=== PATIENT | female | born 1975 | race Caucasian/White ===

== ENCOUNTER 2017-02-18 22:48 | Inpatient (IN) | payer MEDICAID ==
[~2017-02-18] VITALS: Ht 167.6 cm; Wt 61.0 kg
[~2017-02-18 22:48] MED LIST: CARB200T6 PO; PARO10TA89 PO; TRAZ-147 PO
[2017-02-18 23:07] LABS: BASOPHILS % (AUTO) 2.1 % (0.0-2.0); EOSINOPHILS % (AUTO) 0.8 % (1.0-6.0); HEMATOCRIT 36.4 % (36-46); HEMOGLOBIN 11.7 g/dL (12.0-16.0); LYMPHOCYTES # (AUTO) 2.7 K/uL (1.0-4.8); LYMPHOCYTES % (AUTO) 42.7 % (22.0-44.0); MEAN CORPUSCULAR HEMOGLOBIN 31.5 pg (26.0-34.0); MEAN CORPUSCULAR HGB CONC 32.1 G/dL (31.0-37.0); MEAN CORPUSCULAR VOLUME 98 fL (80-100); MONOCYTES # (AUTO) 0.7 K/uL (0.1-1.0); MONOCYTES % (AUTO) 11.1 % (2.0-9.0); NEUTROPHILS # (AUTO) 2.8 K/uL (1.8-7.7); NEUTROPHILS % (AUTO) 43.3 % (40.0-70.0); PLATELET COUNT (AUTO) 407 K/uL (150-450); RED BLOOD CELL COUNT(AUTO) 3.71 MIL/uL (4.00-5.20); RED CELL DISTRIBUTION WIDTH 14.9 % (11.5-14.5); WHITE BLOOD COUNT (AUTO) 6.4 K/uL (4.5-11.0)
[2017-02-18 23:13] LABS: ANION GAP 12 mmol/L (8-16); CALCIUM, TOTAL 8.5 mg/dL (8.8-10.5); CARBON DIOXIDE 25 mmol/L (22-29); CHLORIDE 106 mmol/L (98-107); CREATININE 0.79 mg/dL (0.60-1.30); GLOMERULAR FILTR. RATE CALC > 60 mL/min (>60); POTASSIUM 3.6 mmol/L (3.5-5.1); SODIUM SERUM 143 mmol/L (136-145); UREA NITROGEN, BLOOD 11 mg/dL (7-18)
[2017-02-18 23:19] LABS: ALANINE AMINOTRANSFERASE 142 U/L (12-78); ALBUMIN 3.6 g/dL (3.4-5.0); ASPARTATE AMINOTRANSFERASE 109 U/L (15-37); BILIRUBIN,TOTAL 0.4 mg/dL (0.1-1.0); TOTAL PROTEIN, SERUM 7.6 g/dL (6.4-8.2)
[2017-02-19] MEDS ORDERED: LORazepam 2 MG/ML VIAL IM ONE (01:00)
[2017-02-19] MEDS ORDERED: DiphenhydrAMINE HCL 50 MG/ML VIAL IM ONE (01:00)
[2017-02-19] MEDS ORDERED: HALOPERIDOL LACTATE 5 MG/ML VIAL IM ONE (01:00)
[2017-02-19] MEDS ORDERED: HALOPERIDOL 5 MG TABLET PO PRN (01:45)
[2017-02-19] MEDS ORDERED: ZOLPIDEM TARTRATE 10 MG TABLET PO PRN (01:45)
[2017-02-19] MEDS ORDERED: LORazepam 2 MG TABLET PO PRN (01:45)
[2017-02-19 01:46] VITALS: BP 122/76
[2017-02-19 04:20] VITALS: BP 122/60
[2017-02-19 04:38] LABS: GLUCOSE, URINE (UA) NEGATIVE (NEGATIVE); KETONES,URINE NEGATIVE (NEGATIVE); LEUKOCYTE ESTERASE ,URINE TRACE (NEGATIVE); OCCULT BLOOD,URINE NEGATIVE (NEGATIVE); PROTEIN,URINE NEGATIVE (NEGATIVE)
[2017-02-19 04:39] LABS: ADD UA MICROSCOPIC YES
[2017-02-19 04:40] LABS: APPEARANCE,URINE HAZY (CLEAR)
[2017-02-19 05:27] LABS: HYALINE CASTS, URINE 0-2 /LPF (None Seen); RBC,URINE 0-2 /HPF (0-2); SQUAMOUS EPITHELIAL CELL,UR Rare /LPF (None Seen)
[2017-02-19 09:17] VITALS: BP 107/61
[2017-02-19] MEDS: CarBAMazepine 200 MG TABLET PO SCH ×2 (13:16→16:16)
[2017-02-19 18:03] VITALS: BP 114/72
[2017-02-19] MEDS ORDERED: MAGNESIUM HYDROXIDE SUSPENSION 30 ML UDCUP PO PRN (19:15)
[2017-02-19] MEDS ORDERED: ALBUTEROL SULFATE HFA 90 MCG/PUFF 8 GM INHALER IH PRN (19:15)
[2017-02-19] MEDS ORDERED: ACETAMINOPHEN 325 MG TABLET PO PRN (19:15)
[2017-02-19] MEDS ORDERED: CloNIDine HCL 0.1 MG TABLET PO PRN (19:15)
[2017-02-19] MEDS ORDERED: LOPERAMIDE HCL 2 MG CAPSULE PO PRN (19:15)
[2017-02-19] MEDS ORDERED: BACITRACIN 28.4 GM OINTMENT TP PRN (19:15)
[2017-02-19] MEDS ORDERED: MAG HYDROX/AL HYDROX/SIMETH ES 30 ML SUSPENSION UDCUP PO PRN (19:15)
[2017-02-19] MEDS ORDERED: IBUPROFEN 600 MG TABLET PO PRN (19:15)
[2017-02-19] MEDS ORDERED: PETROLATUM,WHITE 71 GM JELLY TP PRN (19:15)
[2017-02-19] MEDS ORDERED: ONDANSETRON HCL 4 MG TABLET PO PRN (19:15)
[2017-02-19] MEDS ORDERED: BENZOCAINE/MENTHOL LOZENGE [8 LOZENGES/PACKET] MM PRN (19:30)
[2017-02-19] MEDS ORDERED: TraZODone HCL 100 MG TABLET PO SCH (21:00)
[2017-02-19] MEDS ORDERED: PARoxetine HCL 10 MG TABLET PO SCH (21:00)
[2017-02-19] MEDS: TraZODone HCL 100 MG TABLET PO SCH (21:57)
[2017-02-19] MEDS: PARoxetine HCL 10 MG TABLET PO SCH (21:58)
[2017-02-19] MEDS: QUEtiapine FUMARATE 100 MG TABLET PO SCH (21:58)
[2017-02-20] VITALS (9 sets, daily range): BP systolic 96–132; BP diastolic 57–77
[2017-02-20] MEDS: PARoxetine HCL 20 MG TABLET PO SCH (10:29)
[2017-02-20] MEDS: CarBAMazepine 200 MG TABLET PO SCH ×2 (10:29→17:16)
[2017-02-20] MEDS: ChlordiazePOXIDE HCL 25 MG CAPSULE PO PRN ×2 (16:26→20:47)
[2017-02-20] MEDS: PARoxetine HCL 10 MG TABLET PO SCH (20:47)
[2017-02-20] MEDS: TraZODone HCL 100 MG TABLET PO SCH (20:47)
[2017-02-20] MEDS: QUEtiapine FUMARATE 100 MG TABLET PO SCH (20:48)
[2017-02-21] VITALS (8 sets, daily range): BP systolic 93–111; BP diastolic 55–72
[2017-02-21] MEDS ORDERED: ChlordiazePOXIDE HCL 25 MG CAPSULE PO PRN (07:00)
[2017-02-21] MEDS: PARoxetine HCL 20 MG TABLET PO SCH (10:03)
[2017-02-21] MEDS: CarBAMazepine 200 MG TABLET PO SCH ×2 (10:04→16:25)
[2017-02-21] MEDS: ChlordiazePOXIDE HCL 25 MG CAPSULE PO SCH ×4 (10:05→20:19)
[2017-02-21] MEDS: QUEtiapine FUMARATE 100 MG TABLET PO SCH (20:19)
[2017-02-21] MEDS: TraZODone HCL 100 MG TABLET PO SCH (20:19)
[2017-02-21] MEDS: PARoxetine HCL 10 MG TABLET PO SCH (20:20)
[2017-02-22 02:30] VITALS: BP 110/63
[2017-02-22 08:05] VITALS: BP 161/93
[2017-02-22] MEDS: PARoxetine HCL 20 MG TABLET PO SCH (09:03)
[2017-02-22] MEDS: CarBAMazepine 200 MG TABLET PO SCH ×2 (09:03→17:06)
[2017-02-22] MEDS: ChlordiazePOXIDE HCL 25 MG CAPSULE PO SCH ×4 (09:03→20:51)
[2017-02-22 16:25] VITALS: BP 95/51
[2017-02-22] MEDS: PARoxetine HCL 10 MG TABLET PO SCH (20:51)
[2017-02-22] MEDS: TraZODone HCL 100 MG TABLET PO SCH (20:51)
[2017-02-22] MEDS: QUEtiapine FUMARATE 100 MG TABLET PO SCH (20:51)
[2017-02-23] MEDS ORDERED: ChlordiazePOXIDE HCL 10 MG CAPSULE PO PRN (07:00)
[2017-02-23 08:45] VITALS: BP 101/54
[2017-02-23] MEDS: CarBAMazepine 200 MG TABLET PO SCH (09:27)
[2017-02-23] MEDS: PARoxetine HCL 20 MG TABLET PO SCH (09:27)
[2017-02-23] MEDS: ChlordiazePOXIDE HCL 10 MG CAPSULE PO SCH ×2 (09:28→13:24)
[2017-02-23] MEDS ORDERED: PARO20TA24 PO (15:01)
[2017-02-23] MEDS ORDERED: QUET100T PO (15:01)
[2017-02-24] MEDS ORDERED: ChlordiazePOXIDE HCL 10 MG CAPSULE PO PRN (07:00)
== END 2017-02-23 16:15 | disposition home or self-care (01) | DRG 750 ==
LOC: EMS 22:52 → 3EI 02-19 01:30
DX: F25.0 Schizoaffective disorder, bipolar type (principal); N39.0 Urinary tract infection, site not specified; J44.9 Chronic obstructive pulmonary disease, unspecified; F32.9 Major depressive disorder, single episode, unspecified; F15.10 Other stimulant abuse, uncomplicated; B18.2 Chronic viral hepatitis C; F10.229 Alcohol dependence with intoxication, unspecified; E58 Dietary calcium deficiency; F17.210 Nicotine dependence, cigarettes, uncomplicated; Y90.6 Blood alcohol level of 120-199 mg/100 ml; G47.00 Insomnia, unspecified; K21.9 Gastro-esophageal reflux disease without esophagitis; K59.00 Constipation, unspecified; R45.850 Homicidal ideations; S40.819A Abrasion of unspecified upper arm, initial encounter; Z59.0 Homelessness; Z91.5 Personal history of self-harm; Z79.899 Other long term (current) drug therapy; Z71.51 Drug abuse counseling and surveillance of drug abuser; Z71.41 Alcohol abuse counseling and surveillance of alcoholic; Z71.6 Tobacco abuse counseling
CPT/HCPCS: 87081; 96372; 99285; 99406; G0480; J1200; J1630; J2060

== ENCOUNTER 2017-08-09 13:13 | Emergency (ER) | payer MEDICAID ==
[~2017-08-09] VITALS: Ht 154.9 cm; Wt 72.7 kg
[~2017-08-09 13:13] MED LIST changes: +QUET300T2 PO; -TRAZ-147 PO
[2017-08-09 13:26] VITALS: BP 103/64
[2017-08-09] MEDS ORDERED: BACITRACIN 0.9 GM PACKET OINTMENT TP ONE (14:00)
== END 2017-08-09 14:40 | disposition home or self-care (01) ==
LOC: EMS 13:17
DX: L08.9 Local infection of the skin and subcutaneous tissue, unspecified (principal); F25.9 Schizoaffective disorder, unspecified; F15.10 Other stimulant abuse, uncomplicated; K21.9 Gastro-esophageal reflux disease without esophagitis; F14.90 Cocaine use, unspecified, uncomplicated; F12.90 Cannabis use, unspecified, uncomplicated; F19.90 Other psychoactive substance use, unspecified, uncomplicated; F13.90 Sedative, hypnotic, or anxiolytic use, unspecified, uncomplicated; F17.210 Nicotine dependence, cigarettes, uncomplicated; Z59.0 Homelessness
CPT/HCPCS: 99283

== ENCOUNTER 2017-08-24 09:29 | Emergency (ER) | payer MEDICAID ==
[~2017-08-24] VITALS: Ht 154.9 cm; Wt 52.5 kg
[2017-08-24] MEDS: METHOCARBAMOL 500 MG TABLET PO ONE ×2 (11:43→11:47)
[2017-08-24] MEDS: KETOROLAC TROMETHAMINE 60 MG/2 ML VIAL IM ONE ×2 (11:44→11:47)
[2017-08-24] MEDS ORDERED: KETOROLAC TROMETHAMINE 60 MG/2 ML VIAL IM ONE (15:00)
[2017-08-24 15:41] VITALS: BP 115/78
== END 2017-08-24 15:47 | disposition home or self-care (01) ==
LOC: EMS 09:30
DX: L02.415 Cutaneous abscess of right lower limb (principal); K21.9 Gastro-esophageal reflux disease without esophagitis; F17.210 Nicotine dependence, cigarettes, uncomplicated; F12.90 Cannabis use, unspecified, uncomplicated; F14.90 Cocaine use, unspecified, uncomplicated; F19.90 Other psychoactive substance use, unspecified, uncomplicated; F13.90 Sedative, hypnotic, or anxiolytic use, unspecified, uncomplicated
CPT/HCPCS: 10060; 96372; 99283; J1885

== ENCOUNTER 2017-09-05 11:11 | Emergency (ER) | payer MEDICAID ==
[~2017-09-05] VITALS: Ht 154.9 cm; Wt 72.7 kg
[2017-09-05 12:09] VITALS: BP 111/67
[2017-09-05] MEDS ORDERED: SULFAMETHOX/TRIMETH DS 800-160 MG/TABLET PO ONE (12:30)
[2017-09-05] MEDS ORDERED: CLINDAMYCIN HCL 150 MG CAPSULE PO ONE (12:30)
[2017-09-05] MEDS ORDERED: CEPHALEXIN MONOHYDRATE 500 MG CAPSULE PO ONE (12:30)
[2017-09-05 12:46] LABS: BASOPHILS % (AUTO) 0.7 % (0.0-2.0); EOSINOPHILS % (AUTO) 0 % (1.0-6.0); HEMATOCRIT 37.3 % (36-46); HEMOGLOBIN 12.6 g/dL (12.0-16.0); LYMPHOCYTES # (AUTO) 1.9 K/uL (1.0-4.8); LYMPHOCYTES % (AUTO) 25.3 % (22.0-44.0); MEAN CORPUSCULAR HEMOGLOBIN 32.9 pg (26.0-34.0); MEAN CORPUSCULAR HGB CONC 33.8 G/dL (31.0-37.0); MEAN CORPUSCULAR VOLUME 98 fL (80-100); MONOCYTES # (AUTO) 0.7 K/uL (0.1-1.0); MONOCYTES % (AUTO) 9.2 % (2.0-9.0); NEUTROPHILS # (AUTO) 4.7 K/uL (1.8-7.7); NEUTROPHILS % (AUTO) 64.8 % (40.0-70.0); PLATELET COUNT (AUTO) 392 K/uL (150-450); RED BLOOD CELL COUNT(AUTO) 3.82 MIL/uL (4.00-5.20); RED CELL DISTRIBUTION WIDTH 15.2 % (11.5-14.5); WHITE BLOOD COUNT (AUTO) 7.3 K/uL (4.5-11.0)
[2017-09-05 12:57] LABS: ANION GAP 9 mmol/L (8-16); CALCIUM, TOTAL 8.4 mg/dL (8.8-10.5); CARBON DIOXIDE 29 mmol/L (22-29); CHLORIDE 100 mmol/L (98-107); CREATININE 0.64 mg/dL (0.60-1.30); GLOMERULAR FILTR. RATE CALC > 60 mL/min (>60); POTASSIUM 3.1 mmol/L (3.5-5.1); SODIUM SERUM 138 mmol/L (136-145); UREA NITROGEN, BLOOD 7 mg/dL (7-18)
[2017-09-05] MEDS ORDERED: POTASSIUM CHLORIDE 20 MEQ ER TABLET PO ONE (13:00)
[2017-09-05 13:03] LABS: ALANINE AMINOTRANSFERASE 116 U/L (12-78); ALBUMIN 2.9 g/dL (3.4-5.0); ASPARTATE AMINOTRANSFERASE 146 U/L (15-37); BILIRUBIN,TOTAL 0.4 mg/dL (0.1-1.0); TOTAL PROTEIN, SERUM 7.7 g/dL (6.4-8.2)
== END 2017-09-05 13:27 | disposition home or self-care (01) ==
LOC: EMS 11:15
DX: L02.31 Cutaneous abscess of buttock (principal); R74.0 Nonspecific elevation of levels of transaminase and lactic acid dehydrogenase [LDH]; F10.20 Alcohol dependence, uncomplicated; K21.9 Gastro-esophageal reflux disease without esophagitis; F17.210 Nicotine dependence, cigarettes, uncomplicated; F12.90 Cannabis use, unspecified, uncomplicated; F19.90 Other psychoactive substance use, unspecified, uncomplicated; F13.10 Sedative, hypnotic or anxiolytic abuse, uncomplicated; F14.90 Cocaine use, unspecified, uncomplicated; Z76.0 Encounter for issue of repeat prescription
CPT/HCPCS: 99284

== ENCOUNTER 2017-09-10 22:21 | Emergency (ER) | payer MEDICAID ==
[~2017-09-10] VITALS: Ht 167.6 cm; Wt 88.6 kg
[2017-09-10 23:19] LABS: EOSINOPHILS % (AUTO) 0 % (1.0-6.0); HEMATOCRIT 37.4 % (36-46); HEMOGLOBIN 12.7 g/dL (12.0-16.0); LYMPHOCYTES # (AUTO) 3.6 K/uL (1.0-4.8); LYMPHOCYTES % (AUTO) 46.2 % (22.0-44.0); MEAN CORPUSCULAR HEMOGLOBIN 33.2 pg (26.0-34.0); MEAN CORPUSCULAR HGB CONC 33.9 G/dL (31.0-37.0); MEAN CORPUSCULAR VOLUME 98 fL (80-100); MONOCYTES # (AUTO) 0.9 K/uL (0.1-1.0); MONOCYTES % (AUTO) 11.9 % (2.0-9.0); NEUTROPHILS # (AUTO) 3.2 K/uL (1.8-7.7); NEUTROPHILS % (AUTO) 40.9 % (40.0-70.0); PLATELET COUNT (AUTO) 397 K/uL (150-450); RED BLOOD CELL COUNT(AUTO) 3.82 MIL/uL (4.00-5.20); RED CELL DISTRIBUTION WIDTH 16.3 % (11.5-14.5); WHITE BLOOD COUNT (AUTO) 7.8 K/uL (4.5-11.0)
[2017-09-10 23:40] LABS: ANION GAP 12 mmol/L (8-16); CALCIUM, TOTAL 8.6 mg/dL (8.8-10.5); CARBON DIOXIDE 24 mmol/L (22-29); CHLORIDE 105 mmol/L (98-107); CREATININE 0.67 mg/dL (0.60-1.30); GLOMERULAR FILTR. RATE CALC > 60 mL/min (>60); POTASSIUM 3.5 mmol/L (3.5-5.1); SODIUM SERUM 141 mmol/L (136-145); UREA NITROGEN, BLOOD 14 mg/dL (7-18)
[2017-09-10 23:45] LABS: ALANINE AMINOTRANSFERASE 135 U/L (12-78); ALBUMIN 3.2 g/dL (3.4-5.0); ASPARTATE AMINOTRANSFERASE 124 U/L (15-37); BILIRUBIN,TOTAL 0.3 mg/dL (0.1-1.0)
[2017-09-11 05:19] VITALS: BP 103/64
== END 2017-09-11 06:03 | disposition home or self-care (01) ==
LOC: EMS 22:23
DX: F10.229 Alcohol dependence with intoxication, unspecified (principal); K70.30 Alcoholic cirrhosis of liver without ascites; K21.9 Gastro-esophageal reflux disease without esophagitis; F12.90 Cannabis use, unspecified, uncomplicated; F14.90 Cocaine use, unspecified, uncomplicated; F15.90 Other stimulant use, unspecified, uncomplicated; F17.210 Nicotine dependence, cigarettes, uncomplicated; Y90.8 Blood alcohol level of 240 mg/100 ml or more
CPT/HCPCS: 36415; 80053; 84703; 85025; 99284; 99406; G0480

== ENCOUNTER 2017-11-01 11:48 | Emergency (ER) | payer MEDICAID ==
[~2017-11-01] VITALS: Ht 165.1 cm; Wt 84.5 kg
[2017-11-01 12:17] LABS: GLUCOSE,POINT OF CARE 96 MG/DL (70-110)
[2017-11-01 17:16] VITALS: BP 130/70
== END 2017-11-01 17:52 | disposition home or self-care (01) ==
LOC: EMS 11:51
DX: F10.229 Alcohol dependence with intoxication, unspecified (principal); K21.9 Gastro-esophageal reflux disease without esophagitis; F12.90 Cannabis use, unspecified, uncomplicated; F14.90 Cocaine use, unspecified, uncomplicated; F15.90 Other stimulant use, unspecified, uncomplicated; F19.90 Other psychoactive substance use, unspecified, uncomplicated; F17.210 Nicotine dependence, cigarettes, uncomplicated; Y90.8 Blood alcohol level of 240 mg/100 ml or more
CPT/HCPCS: 36415; 82948; 82962; 99283; 99406; G0480

== ENCOUNTER 2017-12-17 16:54 | Emergency (ER) | payer MEDICAID ==
[~2017-12-17] VITALS: Ht 154.9 cm; Wt 72.7 kg
[2017-12-17 17:02] VITALS: BP 116/78
== END 2017-12-17 20:59 | disposition left against medical advice (07) ==
LOC: EMS 20:57
DX: M79.672 Pain in left foot (principal); M79.89 Other specified soft tissue disorders; K21.9 Gastro-esophageal reflux disease without esophagitis; F17.210 Nicotine dependence, cigarettes, uncomplicated; F13.10 Sedative, hypnotic or anxiolytic abuse, uncomplicated; F12.90 Cannabis use, unspecified, uncomplicated; F14.90 Cocaine use, unspecified, uncomplicated; Z53.21 Procedure and treatment not carried out due to patient leaving prior to being seen by health care provider

== ENCOUNTER 2018-05-07 13:27 | Inpatient (IN) | payer MEDICAID ==
[~2018-05-07] VITALS: Ht 160 cm; Wt 64.9 kg
[2018-05-07 15:11] LABS: BASOPHILS % (AUTO) 0.9 % (0.0-2.0); EOSINOPHILS % (AUTO) 2.5 % (1.0-6.0); HEMATOCRIT 38.4 % (36-46); HEMOGLOBIN 13.3 g/dL (12.0-16.0); LYMPHOCYTES # (AUTO) 1.7 K/uL (1.0-4.8); LYMPHOCYTES % (AUTO) 38.4 % (22.0-44.0); MEAN CORPUSCULAR HEMOGLOBIN 35.4 pg (26.0-34.0); MEAN CORPUSCULAR HGB CONC 34.8 G/dL (31.0-37.0); MEAN CORPUSCULAR VOLUME 102 fL (80-100); MONOCYTES # (AUTO) 0.5 K/uL (0.1-1.0); MONOCYTES % (AUTO) 10.4 % (2.0-9.0); NEUTROPHILS # (AUTO) 2.2 K/uL (1.8-7.7); NEUTROPHILS % (AUTO) 47.8 % (40.0-70.0); PLATELET COUNT (AUTO) 329 K/uL (150-450); RED BLOOD CELL COUNT(AUTO) 3.77 MIL/uL (4.00-5.20); RED CELL DISTRIBUTION WIDTH 12.9 % (11.5-14.5)
[2018-05-07 15:23] LABS: ANION GAP 8 mmol/L (8-16); CALCIUM, TOTAL 8.3 mg/dL (8.8-10.5); CARBON DIOXIDE 28 mmol/L (22-29); CHLORIDE 101 mmol/L (98-107); CREATININE 0.75 mg/dL (0.60-1.30); GLOMERULAR FILTR. RATE CALC > 60 mL/min (>60); GLUCOSE,RANDOM 83 mg/dL (70-110); POTASSIUM 3.5 mmol/L (3.5-5.1); SODIUM SERUM 137 mmol/L (136-145); UREA NITROGEN, BLOOD 7 mg/dL (7-18)
[2018-05-07 15:24] LABS: AMPHET/METH SCREEN,URINE POSITIVE (NEGATIVE); BARBITURATE SCREEN, URINE NEGATIVE (NEGATIVE); BENZODIAZEPINES SCREEN,URINE NEGATIVE (NEGATIVE); CANNABINOID SCREEN,URINE NEGATIVE (NEGATIVE); COCAINE SCREEN,URINE NEGATIVE (NEGATIVE); METHADONE SCREEN, URINE NEGATIVE (NEGATIVE); OPIATE SCREEN,URINE NEGATIVE (NEGATIVE); PHENCYCLIDINE SCREEN,URINE NEGATIVE (NEGATIVE)
[2018-05-07 15:30] LABS: ALANINE AMINOTRANSFERASE 588 U/L (12-78); ALBUMIN 3.7 g/dL (3.4-5.0); ALKALINE PHOSPHATASE 112 U/L (46-116); ASPARTATE AMINOTRANSFERASE 632 U/L (15-37); BILIRUBIN,TOTAL 1.2 mg/dL (0.1-1.0); TOTAL PROTEIN, SERUM 7.9 g/dL (6.4-8.2)
[2018-05-07 15:48] LABS: PLATELET MORPHOLOGY COMMENT NORMAL
[2018-05-07] MEDS ORDERED: HALOPERIDOL 5 MG TABLET PO PRN (18:00)
[2018-05-07] MEDS ORDERED: ChlordiazePOXIDE HCL 25 MG CAPSULE PO PRN (18:00)
[2018-05-07 20:00] VITALS: BP 114/67
[2018-05-07 20:11] VITALS: BP 114/67
[2018-05-07] MEDS ORDERED: PNEUMOCOCCAL VACCINE POLYVALENT 0.5 ML VIAL [PPSV23] IM ONE (21:00)
[2018-05-07] MEDS ORDERED: ACETAMINOPHEN 325 MG TABLET PO PRN (21:15)
[2018-05-07] MEDS ORDERED: BACITRACIN 28.4 GM OINTMENT TP PRN (21:15)
[2018-05-07 21:29] VITALS: BP 115/70
[2018-05-07 22:09] VITALS: BP 114/72
[2018-05-07 23:04] VITALS: BP 112/71
[2018-05-08] MEDS ORDERED: ChlordiazePOXIDE HCL 25 MG CAPSULE PO PRN (07:00)
[2018-05-08 07:11] VITALS: BP 118/71
[2018-05-08 08:41] VITALS: BP 115/61
[2018-05-08] MEDS: ChlordiazePOXIDE HCL 25 MG CAPSULE PO SCH ×4 (09:09→21:14)
[2018-05-08] MEDS: PARoxetine HCL 20 MG TABLET PO SCH (09:09)
[2018-05-08] MEDS: NICOTINE 14 MG/24 HOUR PATCH TD SCH (09:12)
[2018-05-08 16:00] VITALS: BP 114/71
[2018-05-08 16:24] VITALS: BP 114/71
[2018-05-08 20:21] VITALS: BP 120/68
[2018-05-08] MEDS ORDERED: CloNIDine HCL 0.1 MG TABLET PO PRN (21:30)
[2018-05-08] MEDS ORDERED: ALBUTEROL SULFATE HFA 90 MCG/PUFF 8 GM INHALER IH PRN (21:30)
[2018-05-08] MEDS ORDERED: BENZOCAINE/MENTHOL LOZENGE MM PRN (21:30)
[2018-05-08] MEDS ORDERED: LOPERAMIDE HCL 2 MG CAPSULE PO PRN (21:30)
[2018-05-08] MEDS ORDERED: MAG HYDROX/AL HYDROX/SIMETH ES 30 ML SUSPENSION UDCUP PO PRN (21:30)
[2018-05-08] MEDS ORDERED: ONDANSETRON HCL 4 MG TABLET PO PRN (21:30)
[2018-05-08] MEDS ORDERED: PETROLATUM,WHITE 71 GM JELLY TP PRN (21:30)
[2018-05-08] MEDS ORDERED: IBUPROFEN 600 MG TABLET PO PRN (21:30)
[2018-05-08] MEDS ORDERED: MAGNESIUM HYDROXIDE SUSPENSION 30 ML UDCUP PO PRN (21:30)
[2018-05-09 07:03] VITALS: BP 116/77
[2018-05-09 07:04] VITALS: BP 116/77
[2018-05-09 08:38] VITALS: BP 119/73
[2018-05-09] MEDS: ChlordiazePOXIDE HCL 25 MG CAPSULE PO SCH ×4 (09:11→20:17)
[2018-05-09] MEDS: PARoxetine HCL 20 MG TABLET PO SCH (09:11)
[2018-05-09] MEDS: DOCUSATE SODIUM 100 MG CAPSULE PO SCH (09:11)
[2018-05-09] MEDS: NICOTINE 14 MG/24 HOUR PATCH TD SCH (09:12)
[2018-05-09] MEDS: OMEPRAZOLE 20 MG CAPSULE PO SCH (09:12)
[2018-05-09 16:00] VITALS: BP 109/73
[2018-05-09 16:10] VITALS: BP 109/73
[2018-05-10 00:03] VITALS: BP 115/79
[2018-05-10] MEDS ORDERED: ChlordiazePOXIDE HCL 10 MG CAPSULE PO PRN (07:00)
[2018-05-10 07:01] VITALS: BP 111/76
[2018-05-10] MEDS: ChlordiazePOXIDE HCL 10 MG CAPSULE PO SCH ×4 (08:23→21:34)
[2018-05-10] MEDS: NICOTINE 14 MG/24 HOUR PATCH TD SCH (08:24)
[2018-05-10] MEDS: PARoxetine HCL 20 MG TABLET PO SCH (08:24)
[2018-05-10] MEDS: FOLIC ACID 1 MG TABLET PO SCH (08:24)
[2018-05-10] MEDS: MULTIVITAMINS WITH MINERALS, THERAPEUTIC TABLET PO SCH (08:24)
[2018-05-10] MEDS: DOCUSATE SODIUM 100 MG CAPSULE PO SCH (08:24)
[2018-05-10] MEDS: THIAMINE HCL 100 MG TABLET PO SCH (08:24)
[2018-05-10] MEDS: OMEPRAZOLE 20 MG CAPSULE PO SCH (08:24)
[2018-05-10 08:38] VITALS: BP 121/62
[2018-05-10 10:00] VITALS: BP 112/72
[2018-05-10 16:15] VITALS: BP_SYST 112; BP_DIAS 0; BP_DIAS 70
[2018-05-11 05:54] VITALS: BP 126/62
[2018-05-11 05:55] VITALS: BP 126/62
[2018-05-11] MEDS ORDERED: ChlordiazePOXIDE HCL 10 MG CAPSULE PO PRN (07:00)
[2018-05-11 08:22] VITALS: BP 100/63
[2018-05-11] MEDS: OMEPRAZOLE 20 MG CAPSULE PO SCH (08:36)
[2018-05-11] MEDS: FOLIC ACID 1 MG TABLET PO SCH (08:36)
[2018-05-11] MEDS: PARoxetine HCL 20 MG TABLET PO SCH (08:36)
[2018-05-11] MEDS: THIAMINE HCL 100 MG TABLET PO SCH (08:36)
[2018-05-11] MEDS: NICOTINE 14 MG/24 HOUR PATCH TD SCH (08:36)
[2018-05-11] MEDS: DOCUSATE SODIUM 100 MG CAPSULE PO SCH (08:36)
[2018-05-11] MEDS: MULTIVITAMINS WITH MINERALS, THERAPEUTIC TABLET PO SCH (08:36)
[2018-05-11 16:30] VITALS: BP 117/64
[2018-05-12 06:25] VITALS: BP 114/68
[2018-05-12 08:34] VITALS: BP 100/57
[2018-05-12] MEDS: THIAMINE HCL 100 MG TABLET PO SCH (08:48)
[2018-05-12] MEDS: DOCUSATE SODIUM 100 MG CAPSULE PO SCH (08:48)
[2018-05-12] MEDS: PARoxetine HCL 20 MG TABLET PO SCH (08:48)
[2018-05-12] MEDS: OMEPRAZOLE 20 MG CAPSULE PO SCH (08:48)
[2018-05-12] MEDS: MULTIVITAMINS WITH MINERALS, THERAPEUTIC TABLET PO SCH (08:48)
[2018-05-12] MEDS: FOLIC ACID 1 MG TABLET PO SCH (08:48)
[2018-05-12] MEDS: NICOTINE 14 MG/24 HOUR PATCH TD SCH (08:49)
[2018-05-12 16:00] VITALS: BP 108/60
[2018-05-12 16:43] VITALS: BP 108/60
[2018-05-12] MEDS: QUEtiapine FUMARATE 25 MG TABLET PO SCH (20:09)
[2018-05-12] MEDS: TraZODone HCL 50 MG TABLET PO SCH (20:09)
[2018-05-13 06:50] VITALS: BP 110/70
[2018-05-13 06:57] VITALS: BP 110/70
[2018-05-13] MEDS: DOCUSATE SODIUM 100 MG CAPSULE PO SCH (08:12)
[2018-05-13] MEDS: NICOTINE 14 MG/24 HOUR PATCH TD SCH (08:12)
[2018-05-13] MEDS: MULTIVITAMINS WITH MINERALS, THERAPEUTIC TABLET PO SCH (08:12)
[2018-05-13] MEDS: OMEPRAZOLE 20 MG CAPSULE PO SCH (08:12)
[2018-05-13] MEDS: PARoxetine HCL 20 MG TABLET PO SCH (08:12)
[2018-05-13] MEDS: FOLIC ACID 1 MG TABLET PO SCH (08:12)
[2018-05-13] MEDS: THIAMINE HCL 100 MG TABLET PO SCH (08:12)
[2018-05-13 08:27] VITALS: BP 100/53
[2018-05-13 16:50] VITALS: BP 102/54
[2018-05-13] MEDS: CHOLECALCIFEROL (VIT D3) 1,000 UNITS TABLET PO SCH (16:57)
[2018-05-13] MEDS: QUEtiapine FUMARATE 25 MG TABLET PO SCH (20:36)
[2018-05-13] MEDS: TraZODone HCL 50 MG TABLET PO SCH (20:36)
[2018-05-14 06:38] VITALS: BP 101/63
[2018-05-14] MEDS: PARoxetine HCL 20 MG TABLET PO SCH (09:58)
[2018-05-14] MEDS: OMEPRAZOLE 20 MG CAPSULE PO SCH (09:58)
[2018-05-14] MEDS: FOLIC ACID 1 MG TABLET PO SCH (09:58)
[2018-05-14] MEDS: CHOLECALCIFEROL (VIT D3) 1,000 UNITS TABLET PO SCH ×2 (09:58→17:13)
[2018-05-14] MEDS: THIAMINE HCL 100 MG TABLET PO SCH (09:58)
[2018-05-14] MEDS: DOCUSATE SODIUM 100 MG CAPSULE PO SCH (09:58)
[2018-05-14] MEDS: MULTIVITAMINS WITH MINERALS, THERAPEUTIC TABLET PO SCH (09:58)
[2018-05-14] MEDS: NICOTINE 14 MG/24 HOUR PATCH TD SCH (09:59)
[2018-05-14 10:12] VITALS: BP 95/61
[2018-05-14 17:38] VITALS: BP 106/71
[2018-05-14] MEDS: QUEtiapine FUMARATE 25 MG TABLET PO SCH (20:53)
[2018-05-14] MEDS: TraZODone HCL 50 MG TABLET PO SCH (20:53)
[2018-05-15 06:39] VITALS: BP 102/61
[2018-05-15 08:45] VITALS: BP 100/58
[2018-05-15] MEDS: THIAMINE HCL 100 MG TABLET PO SCH (09:30)
[2018-05-15] MEDS: MULTIVITAMINS WITH MINERALS, THERAPEUTIC TABLET PO SCH (09:30)
[2018-05-15] MEDS: CHOLECALCIFEROL (VIT D3) 1,000 UNITS TABLET PO SCH ×2 (09:30→16:54)
[2018-05-15] MEDS: FOLIC ACID 1 MG TABLET PO SCH (09:30)
[2018-05-15] MEDS: OMEPRAZOLE 20 MG CAPSULE PO SCH (09:30)
[2018-05-15] MEDS: PARoxetine HCL 20 MG TABLET PO SCH (09:30)
[2018-05-15] MEDS: DOCUSATE SODIUM 100 MG CAPSULE PO SCH (09:30)
[2018-05-15] MEDS: NICOTINE 14 MG/24 HOUR PATCH TD SCH (09:31)
[2018-05-15 16:23] VITALS: BP 116/66
[2018-05-15] MEDS ORDERED: TRAZ-144 PO (17:57)
[2018-05-15] MEDS ORDERED: QUET25TA PO (17:57)
[2018-05-15] MEDS ORDERED: VITAD400 PO (17:58)
[2018-05-15] MEDS ORDERED: PARO20TA24 PO (17:58)
[2018-05-15] MEDS ORDERED: DSS100 PO (17:59)
[2018-05-15] MEDS ORDERED: OMEP20 PO (17:59)
[2018-05-15] MEDS: QUEtiapine FUMARATE 25 MG TABLET PO SCH (20:14)
[2018-05-15] MEDS: TraZODone HCL 50 MG TABLET PO SCH (20:14)
== END 2018-05-16 07:15 | disposition home or self-care (01) | DRG 750 ==
LOC: EMS 13:29 → B3A 18:53
PROVIDERS: ADMIT Psychiatry & Neurology Psychiatry; ATTEND Psychiatry & Neurology Psychiatry
PROC: 3E0234Z Introduction of Serum, Toxoid and Vaccine into Muscle, Percutaneous Approach (ICD-10-PCS; principal; 2018-05-07)
DX: F25.0 Schizoaffective disorder, bipolar type (principal); E83.51 Hypocalcemia; R45.851 Suicidal ideations; B18.2 Chronic viral hepatitis C; F10.10 Alcohol abuse, uncomplicated; F14.90 Cocaine use, unspecified, uncomplicated; F17.210 Nicotine dependence, cigarettes, uncomplicated; F15.10 Other stimulant abuse, uncomplicated; G47.00 Insomnia, unspecified; Y90.1 Blood alcohol level of 20-39 mg/100 ml; K21.9 Gastro-esophageal reflux disease without esophagitis; K59.00 Constipation, unspecified; Z59.0 Homelessness; Z79.899 Other long term (current) drug therapy; Z23 Encounter for immunization; Z71.6 Tobacco abuse counseling; Z71.51 Drug abuse counseling and surveillance of drug abuser; Z71.41 Alcohol abuse counseling and surveillance of alcoholic
CPT/HCPCS: 80074; 82306; 90471; 99285; G0480

== ENCOUNTER 2018-05-27 12:14 | Inpatient (IN) | payer MEDICAID ==
[~2018-05-27] VITALS: Ht 160 cm; Wt 68.5 kg
[~2018-05-27 12:14] MED LIST changes: -CARB200T6 PO; +DSS100 PO; +OMEP20 PO; -PARO10TA89 PO; +PARO20TA24 PO; +QUET25TA PO; -QUET300T2 PO; +TRAZ-219 PO; +VITAD400 PO
[2018-05-27 12:42] LABS: BASOPHILS % (AUTO) 0.4 % (0.0-2.0); EOSINOPHILS % (AUTO) 3.3 % (1.0-6.0); HEMATOCRIT 33.5 % (36-46); HEMOGLOBIN 11.6 g/dL (12.0-16.0); LYMPHOCYTES # (AUTO) 2.2 K/uL (1.0-4.8); LYMPHOCYTES % (AUTO) 29.5 % (22.0-44.0); MEAN CORPUSCULAR HEMOGLOBIN 34.9 pg (26.0-34.0); MEAN CORPUSCULAR HGB CONC 34.6 G/dL (31.0-37.0); MEAN CORPUSCULAR VOLUME 101 fL (80-100); MONOCYTES # (AUTO) 0.7 K/uL (0.1-1.0); MONOCYTES % (AUTO) 9.8 % (2.0-9.0); NEUTROPHILS # (AUTO) 4.3 K/uL (1.8-7.7); PLATELET COUNT (AUTO) 367 K/uL (150-450); RED BLOOD CELL COUNT(AUTO) 3.32 MIL/uL (4.00-5.20); RED CELL DISTRIBUTION WIDTH 13.3 % (11.5-14.5)
[2018-05-27 12:56] LABS: ANION GAP 12 mmol/L (8-16); CALCIUM, TOTAL 8.5 mg/dL (8.8-10.5); CARBON DIOXIDE 25 mmol/L (22-29); CHLORIDE 106 mmol/L (98-107); CREATININE 0.73 mg/dL (0.60-1.30); GLOMERULAR FILTR. RATE CALC > 60 mL/min (>60); GLUCOSE,RANDOM 69 mg/dL (70-110); SODIUM SERUM 143 mmol/L (136-145); UREA NITROGEN, BLOOD 9 mg/dL (7-18)
[2018-05-27 13:05] LABS: ALANINE AMINOTRANSFERASE 363 U/L (12-78); ALBUMIN 3.4 g/dL (3.4-5.0); ALKALINE PHOSPHATASE 94 U/L (46-116); ASPARTATE AMINOTRANSFERASE 325 U/L (15-37); BILIRUBIN,TOTAL 0.8 mg/dL (0.1-1.0); TOTAL PROTEIN, SERUM 7.5 g/dL (6.4-8.2)
[2018-05-27] MEDS ORDERED: ChlordiazePOXIDE HCL 25 MG CAPSULE PO ONE (14:45)
[2018-05-27] MEDS ORDERED: ZOLPIDEM TARTRATE 10 MG TABLET PO PRN (17:00)
[2018-05-27] MEDS ORDERED: LORazepam 2 MG TABLET PO PRN (17:00)
[2018-05-27] MEDS ORDERED: HALOPERIDOL 5 MG TABLET PO PRN (17:00)
[2018-05-27] MEDS ORDERED: ACETAMINOPHEN 500 MG TABLET PO ONE (20:00)
[2018-05-27] MEDS: TraZODone HCL 50 MG TABLET PO SCH (21:22)
[2018-05-27] MEDS: QUEtiapine FUMARATE 25 MG TABLET PO SCH (21:22)
[2018-05-27 21:28] LABS: AMPHET/METH SCREEN,URINE POSITIVE (NEGATIVE); BARBITURATE SCREEN, URINE NEGATIVE (NEGATIVE); BENZODIAZEPINES SCREEN,URINE POSITIVE (NEGATIVE); CANNABINOID SCREEN,URINE NEGATIVE (NEGATIVE); COCAINE SCREEN,URINE POSITIVE (NEGATIVE); METHADONE SCREEN, URINE NEGATIVE (NEGATIVE); OPIATE SCREEN,URINE NEGATIVE (NEGATIVE); PHENCYCLIDINE SCREEN,URINE NEGATIVE (NEGATIVE)
[2018-05-28 08:16] LABS: FREE T4 (FREE THYROXINE) 0.99 ng/dL (0.76-1.46); THYROID STIMULATING HORMONE 0.25 uIU/mL (0.36-3.74)
[2018-05-28] MEDS: PARoxetine HCL 20 MG TABLET PO SCH (09:57)
[2018-05-28] MEDS: TraZODone HCL 50 MG TABLET PO SCH (20:50)
[2018-05-28] MEDS: QUEtiapine FUMARATE 25 MG TABLET PO SCH (20:50)
[2018-05-29] MEDS: PARoxetine HCL 20 MG TABLET PO SCH (08:41)
[2018-05-29 16:30] VITALS: BP 125/77
[2018-05-29] MEDS: TraZODone HCL 50 MG TABLET PO SCH (21:10)
[2018-05-29] MEDS: QUEtiapine FUMARATE 25 MG TABLET PO SCH (21:11)
[2018-05-30 01:56] VITALS: BP 129/68
[2018-05-30 08:23] VITALS: BP 106/65
[2018-05-30] MEDS: PARoxetine HCL 20 MG TABLET PO SCH (09:13)
[2018-05-30 16:49] VITALS: BP 120/63
[2018-05-30] MEDS ORDERED: ALBUTEROL SULFATE HFA 90 MCG/PUFF 8 GM INHALER IH PRN (18:30)
[2018-05-30] MEDS ORDERED: LOPERAMIDE HCL 2 MG CAPSULE PO PRN (18:30)
[2018-05-30] MEDS ORDERED: MAGNESIUM HYDROXIDE SUSPENSION 30 ML UDCUP PO PRN (18:30)
[2018-05-30] MEDS ORDERED: IBUPROFEN 600 MG TABLET PO PRN (18:30)
[2018-05-30] MEDS ORDERED: PETROLATUM,WHITE 71 GM JELLY TP PRN (18:30)
[2018-05-30] MEDS ORDERED: ONDANSETRON HCL 4 MG TABLET PO PRN (18:30)
[2018-05-30] MEDS ORDERED: CloNIDine HCL 0.1 MG TABLET PO PRN (18:30)
[2018-05-30] MEDS ORDERED: MAG HYDROX/AL HYDROX/SIMETH ES 30 ML SUSPENSION UDCUP PO PRN (18:30)
[2018-05-30] MEDS ORDERED: ACETAMINOPHEN 325 MG TABLET PO PRN (18:30)
[2018-05-30] MEDS ORDERED: BACITRACIN 28.4 GM OINTMENT TP PRN (18:30)
[2018-05-30] MEDS ORDERED: BENZOCAINE/MENTHOL LOZENGE MM PRN (18:30)
[2018-05-30] MEDS: TraZODone HCL 50 MG TABLET PO SCH (20:13)
[2018-05-30] MEDS: QUEtiapine FUMARATE 25 MG TABLET PO SCH (20:13)
[2018-05-31 06:44] LABS: % IRON SATURATION 10.8 % (22-44)
[2018-05-31 08:21] VITALS: BP 118/68
[2018-05-31 08:24] VITALS: BP 118/68
[2018-05-31] MEDS: OMEPRAZOLE 20 MG CAPSULE PO SCH (08:45)
[2018-05-31] MEDS: DOCUSATE SODIUM 100 MG CAPSULE PO SCH (08:46)
[2018-05-31] MEDS: PARoxetine HCL 20 MG TABLET PO SCH (08:46)
[2018-05-31] MEDS: TraZODone HCL 50 MG TABLET PO SCH (20:12)
[2018-05-31] MEDS: QUEtiapine FUMARATE 25 MG TABLET PO SCH (20:12)
[2018-06-01 08:00] VITALS: BP 105/62
[2018-06-01] MEDS: PARoxetine HCL 20 MG TABLET PO SCH (09:09)
[2018-06-01] MEDS: OMEPRAZOLE 20 MG CAPSULE PO SCH (09:09)
[2018-06-01] MEDS: DOCUSATE SODIUM 100 MG CAPSULE PO SCH (09:09)
[2018-06-01 16:00] VITALS: BP 130/76
[2018-06-01] MEDS: QUEtiapine FUMARATE 25 MG TABLET PO SCH (20:19)
[2018-06-01] MEDS: TraZODone HCL 50 MG TABLET PO SCH (20:19)
[2018-06-02] MEDS: OMEPRAZOLE 20 MG CAPSULE PO SCH (07:48)
[2018-06-02] MEDS: DOCUSATE SODIUM 100 MG CAPSULE PO SCH (07:49)
[2018-06-02] MEDS: PARoxetine HCL 20 MG TABLET PO SCH (07:49)
[2018-06-02 09:53] VITALS: BP 101/60
[2018-06-02] MEDS: QUEtiapine FUMARATE 25 MG TABLET PO SCH (20:53)
[2018-06-02] MEDS: TraZODone HCL 50 MG TABLET PO SCH (20:53)
[2018-06-03] MEDS: DOCUSATE SODIUM 100 MG CAPSULE PO SCH (08:22)
[2018-06-03] MEDS: PARoxetine HCL 20 MG TABLET PO SCH (08:22)
[2018-06-03] MEDS: OMEPRAZOLE 20 MG CAPSULE PO SCH (08:22)
[2018-06-03 08:35] VITALS: BP 98/57
[2018-06-03] MEDS ORDERED: PARO20TA24 PO (13:40)
[2018-06-03] MEDS ORDERED: TRAZ-219 PO (13:40)
[2018-06-03] MEDS ORDERED: QUET25TA PO (13:40)
[2018-06-03] MEDS ORDERED: FERR-89 PO (13:44)
[2018-06-03] MEDS ORDERED: DSS100 PO (13:44)
[2018-06-03] MEDS ORDERED: OMEP20 PO (13:44)
[2018-06-03] MEDS ORDERED: FERROUS SULFATE 325 MG EC TABLET PO SCH (17:30)
== END 2018-06-03 14:10 | disposition home or self-care (01) | DRG 750 ==
LOC: EMS 12:17 → AHU 05-29 11:31 → 3EC 05-30 04:00
PROVIDERS: ADMIT Psychiatry & Neurology Psychiatry; ATTEND Psychiatry & Neurology Psychiatry
DX: F25.9 Schizoaffective disorder, unspecified (principal); E83.51 Hypocalcemia; R45.851 Suicidal ideations; B19.20 Unspecified viral hepatitis C without hepatic coma; K59.00 Constipation, unspecified; G47.00 Insomnia, unspecified; K21.9 Gastro-esophageal reflux disease without esophagitis; F17.200 Nicotine dependence, unspecified, uncomplicated; F14.90 Cocaine use, unspecified, uncomplicated; F15.10 Other stimulant abuse, uncomplicated
CPT/HCPCS: 82306; 83540; 83550; 84439; 84443; 87081; 99285; G0480

== ENCOUNTER 2018-12-15 16:29 | Inpatient (IN) | payer MEDICAID ==
[~2018-12-15] VITALS: Ht 154.9 cm; Wt 61.9 kg
[~2018-12-15 16:29] MED LIST changes: +FERR-89 PO; -VITAD400 PO
[2018-12-15 17:13] LABS: BASOPHILS % (AUTO) 0.9 % (0.0-2.0); HEMATOCRIT 36.5 % (36-46); LYMPHOCYTES # (AUTO) 2.5 K/uL (1.0-4.8); LYMPHOCYTES % (AUTO) 35.8 % (22.0-44.0); MEAN CORPUSCULAR HEMOGLOBIN 31.2 pg (26.0-34.0); MEAN CORPUSCULAR HGB CONC 32.7 G/dL (31.0-37.0); MEAN CORPUSCULAR VOLUME 95 fL (80-100); MONOCYTES # (AUTO) 0.9 K/uL (0.1-1.0); MONOCYTES % (AUTO) 13.3 % (2.0-9.0); NEUTROPHILS # (AUTO) 3.3 K/uL (1.8-7.7); PLATELET COUNT (AUTO) 424 K/uL (150-450); RED BLOOD CELL COUNT(AUTO) 3.84 MIL/uL (4.00-5.20); RED CELL DISTRIBUTION WIDTH 14.8 % (11.5-14.5)
[2018-12-15] MEDS ORDERED: HALOPERIDOL 5 MG TABLET PO ONE (17:15)
[2018-12-15] MEDS ORDERED: DiphenhydrAMINE HCL 25 MG CAPSULE PO ONE (17:15)
[2018-12-15] MEDS ORDERED: LORazepam 2 MG TABLET PO ONE (17:15)
[2018-12-15 17:23] LABS: AMPHET/METH SCREEN,URINE POSITIVE (NEGATIVE); BENZODIAZEPINES SCREEN,URINE NEGATIVE (NEGATIVE); CANNABINOID SCREEN,URINE POSITIVE (NEGATIVE); COCAINE SCREEN,URINE NEGATIVE (NEGATIVE); METHADONE SCREEN, URINE NEGATIVE (NEGATIVE); OPIATE SCREEN,URINE NEGATIVE (NEGATIVE)
[2018-12-15 17:26] LABS: PHENCYCLIDINE SCREEN,URINE NEGATIVE (NEGATIVE)
[2018-12-15 17:27] LABS: ANION GAP 10 mmol/L (8-16); CALCIUM, TOTAL 9.3 mg/dL (8.8-10.5); CARBON DIOXIDE 29 mmol/L (22-29); CHLORIDE 102 mmol/L (98-107); CREATININE 0.81 mg/dL (0.60-1.30); GLOMERULAR FILTR. RATE CALC > 60 mL/min (>60); GLUCOSE,RANDOM 89 mg/dL (70-110); POTASSIUM 4.2 mmol/L (3.5-5.1); SODIUM SERUM 141 mmol/L (136-145); UREA NITROGEN, BLOOD 17 mg/dL (7-18)
[2018-12-15 17:41] LABS: BARBITURATE SCREEN, URINE NEGATIVE (NEGATIVE)
[2018-12-15 17:42] LABS: ALANINE AMINOTRANSFERASE 214 U/L (12-78); ALBUMIN 3.5 g/dL (3.4-5.0); ALKALINE PHOSPHATASE 82 U/L (46-116); ASPARTATE AMINOTRANSFERASE 273 U/L (15-37); BILIRUBIN,TOTAL 0.8 mg/dL (0.1-1.0); TOTAL PROTEIN, SERUM 7.6 g/dL (6.4-8.2)
[2018-12-16] MEDS ORDERED: HALOPERIDOL 5 MG TABLET PO PRN (03:45)
[2018-12-16] MEDS ORDERED: ZOLPIDEM TARTRATE 10 MG TABLET PO PRN (03:45)
[2018-12-16] MEDS ORDERED: LORazepam 2 MG TABLET PO PRN (03:45)
[2018-12-16 08:07] LABS: APPEARANCE,URINE HAZY (CLEAR); BILIRUBIN,URINE NEGATIVE (NEGATIVE); GLUCOSE, URINE (UA) NEGATIVE (NEGATIVE); KETONES,URINE TRACE mg/dL (NEGATIVE); LEUKOCYTE ESTERASE ,URINE TRACE (NEGATIVE); NITRATE,URINE NEGATIVE (NEGATIVE); OCCULT BLOOD,URINE NEGATIVE (NEGATIVE); PROTEIN,URINE NEGATIVE (NEGATIVE)
[2018-12-16 08:11] LABS: BACTERIA,URINE Rare /HPF (None Seen); RBC,URINE None Seen /HPF (0-2); SQUAMOUS EPITHELIAL CELL,UR Moderate /LPF (None Seen); WBC,URINE 0-2 /HPF (0-5)
[2018-12-16 16:33] VITALS: BP 111/69
[2018-12-16] MEDS ORDERED: PETROLATUM,WHITE 71 GM JELLY TP PRN (17:15)
[2018-12-16] MEDS ORDERED: ACETAMINOPHEN 325 MG TABLET PO PRN (17:15)
[2018-12-16] MEDS ORDERED: LOPERAMIDE HCL 2 MG CAPSULE PO PRN (17:15)
[2018-12-16] MEDS ORDERED: CloNIDine HCL 0.1 MG TABLET PO PRN (17:15)
[2018-12-16] MEDS ORDERED: MAGNESIUM HYDROXIDE SUSPENSION 30 ML UDCUP PO PRN (17:15)
[2018-12-16] MEDS ORDERED: IBUPROFEN 400 MG TABLET PO PRN (17:15)
[2018-12-16] MEDS ORDERED: MAG HYDROX/AL HYDROX/SIMETH ES 30 ML SUSPENSION UDCUP PO PRN (17:15)
[2018-12-16] MEDS ORDERED: ALBUTEROL SULFATE HFA 90 MCG/PUFF 8 GM INHALER IH PRN (17:15)
[2018-12-16] MEDS ORDERED: GuaiFENesin/D-METHORPHAN [SUGAR-FREE] 200-20MG/10 ML SYRUP UDCUP PO PRN (17:15)
[2018-12-16] MEDS ORDERED: ONDANSETRON HCL 4 MG TABLET PO PRN (17:15)
[2018-12-16] MEDS: FERROUS SULFATE 325 MG EC TABLET PO SCH (17:30)
[2018-12-16] MEDS: TraZODone HCL 100 MG TABLET PO SCH (20:45)
[2018-12-16] MEDS: QUEtiapine FUMARATE 100 MG TABLET PO SCH (20:45)
[2018-12-17 06:27] VITALS: BP 108/59
[2018-12-17] MEDS: FAMOTIDINE 20 MG TABLET PO SCH ×2 (06:38→16:29)
[2018-12-17] MEDS: FERROUS SULFATE 325 MG EC TABLET PO SCH ×2 (06:39→16:29)
[2018-12-17 08:19] LABS: HEMOGLOBIN A1C 5.2 % (4.5-6.2)
[2018-12-17 08:46] LABS: CHOL/HDL RATIO 1.8 (3.9-5.7); THYROID STIMULATING HORMONE 0.4 uIU/mL (0.36-3.74)
[2018-12-17 09:47] VITALS: BP 118/80
[2018-12-17] MEDS: PARoxetine HCL 20 MG TABLET PO SCH (10:37)
[2018-12-17] MEDS: NICOTINE 14 MG/24 HOUR PATCH TD SCH (10:38)
[2018-12-17] MEDS: DOCUSATE SODIUM 100 MG CAPSULE PO SCH (10:39)
[2018-12-17 17:00] VITALS: BP 101/61
[2018-12-17] MEDS: TraZODone HCL 100 MG TABLET PO SCH (20:05)
[2018-12-17] MEDS: QUEtiapine FUMARATE 100 MG TABLET PO SCH (20:05)
[2018-12-18] MEDS: FAMOTIDINE 20 MG TABLET PO SCH ×2 (06:46→16:33)
[2018-12-18] MEDS: FERROUS SULFATE 325 MG EC TABLET PO SCH ×2 (06:46→16:33)
[2018-12-18 08:00] VITALS: BP 105/69
[2018-12-18] MEDS: NICOTINE 14 MG/24 HOUR PATCH TD SCH (08:15)
[2018-12-18] MEDS: DOCUSATE SODIUM 100 MG CAPSULE PO SCH (08:16)
[2018-12-18] MEDS: PARoxetine HCL 20 MG TABLET PO SCH (08:16)
[2018-12-18 17:12] VITALS: BP 117/73
[2018-12-18] MEDS: QUEtiapine FUMARATE 100 MG TABLET PO SCH (21:06)
[2018-12-18] MEDS: TraZODone HCL 100 MG TABLET PO SCH (21:07)
[2018-12-19] MEDS: FERROUS SULFATE 325 MG EC TABLET PO SCH ×2 (06:39→16:55)
[2018-12-19] MEDS: FAMOTIDINE 20 MG TABLET PO SCH ×2 (06:39→16:56)
[2018-12-19 08:00] VITALS: BP 94/83
[2018-12-19] MEDS: NICOTINE 14 MG/24 HOUR PATCH TD SCH (09:00)
[2018-12-19] MEDS: PARoxetine HCL 20 MG TABLET PO SCH (10:08)
[2018-12-19] MEDS: DOCUSATE SODIUM 100 MG CAPSULE PO SCH (10:09)
[2018-12-19 17:00] VITALS: BP 116/72
[2018-12-19] MEDS: TraZODone HCL 100 MG TABLET PO SCH (20:08)
[2018-12-19] MEDS: QUEtiapine FUMARATE 100 MG TABLET PO SCH (20:08)
[2018-12-20] MEDS: FAMOTIDINE 20 MG TABLET PO SCH (06:46)
[2018-12-20] MEDS: FERROUS SULFATE 325 MG EC TABLET PO SCH (06:46)
[2018-12-20] MEDS: NICOTINE 14 MG/24 HOUR PATCH TD SCH (09:00)
[2018-12-20] MEDS: DOCUSATE SODIUM 100 MG CAPSULE PO SCH (10:05)
[2018-12-20] MEDS: PARoxetine HCL 20 MG TABLET PO SCH (10:05)
[2018-12-20 10:53] VITALS: BP 117/54
[2018-12-20] MEDS ORDERED: QUET100T PO (14:11)
[2018-12-20] MEDS ORDERED: TRAZ-220 PO (14:11)
[2018-12-20] MEDS ORDERED: FAMO20 PO (14:14)
== END 2018-12-20 15:45 | disposition home or self-care (01) | DRG 750 ==
LOC: EMS 16:30 → 3EI 12-16 14:52
PROVIDERS: ADMIT Psychiatry & Neurology Psychiatry; ATTEND Psychiatry & Neurology Psychiatry
DX: F25.0 Schizoaffective disorder, bipolar type (principal); R45.851 Suicidal ideations; Z59.0 Homelessness; D64.9 Anemia, unspecified; F15.90 Other stimulant use, unspecified, uncomplicated; F17.200 Nicotine dependence, unspecified, uncomplicated; J44.9 Chronic obstructive pulmonary disease, unspecified; K21.9 Gastro-esophageal reflux disease without esophagitis; F10.20 Alcohol dependence, uncomplicated; R45.1 Restlessness and agitation; R45.87 Impulsiveness; K59.00 Constipation, unspecified; Z87.11 Personal history of peptic ulcer disease
CPT/HCPCS: 83036; 84443; G0480

== ENCOUNTER 2019-01-20 10:57 | Emergency (ER) | payer MEDICAID ==
[~2019-01-20] VITALS: Ht 154.9 cm; Wt 68.2 kg
[~2019-01-20 10:57] MED LIST changes: +FAMO20 PO; -OMEP20 PO; +QUET100T PO; -QUET25TA PO; -TRAZ-219 PO; +TRAZ-220 PO
[2019-01-20 14:11] VITALS: BP 138/66
== END 2019-01-20 14:17 | disposition home or self-care (01) ==
LOC: EMS 10:59
DX: S00.81XA Abrasion of other part of head, initial encounter (principal); F15.10 Other stimulant abuse, uncomplicated; F17.210 Nicotine dependence, cigarettes, uncomplicated; K21.9 Gastro-esophageal reflux disease without esophagitis; F20.9 Schizophrenia, unspecified; F12.90 Cannabis use, unspecified, uncomplicated; F19.90 Other psychoactive substance use, unspecified, uncomplicated; F14.90 Cocaine use, unspecified, uncomplicated; F13.10 Sedative, hypnotic or anxiolytic abuse, uncomplicated; Z59.0 Homelessness; X58.XXXA Exposure to other specified factors, initial encounter; Y93.89 Activity, other specified; Y92.89 Other specified places as the place of occurrence of the external cause; Y99.8 Other external cause status
CPT/HCPCS: 99406

== ENCOUNTER 2019-02-26 17:19 | Emergency (ER) | payer MEDICAID ==
[~2019-02-26] VITALS: Ht 154.9 cm; Wt 60.4 kg
[2019-02-26 17:36] LABS: BASOPHILS % (AUTO) 0.5 % (0.0-2.0); EOSINOPHILS % (AUTO) 2.5 % (1.0-6.0); HEMATOCRIT 36.3 % (36-46); HEMOGLOBIN 12.1 g/dL (12.0-16.0); MEAN CORPUSCULAR HEMOGLOBIN 31.9 pg (26.0-34.0); MEAN CORPUSCULAR HGB CONC 33.4 G/dL (31.0-37.0); MEAN CORPUSCULAR VOLUME 96 fL (80-100); MONOCYTES # (AUTO) 0.7 K/uL (0.1-1.0); NEUTROPHILS # (AUTO) 1.8 K/uL (1.8-7.7); PLATELET COUNT (AUTO) 315 K/uL (150-450); RED BLOOD CELL COUNT(AUTO) 3.79 MIL/uL (4.00-5.20); RED CELL DISTRIBUTION WIDTH 15.6 % (11.5-14.5)
[2019-02-26 17:47] LABS: ANION GAP 11 mmol/L (8-16); CALCIUM, TOTAL 8.9 mg/dL (8.8-10.5); CARBON DIOXIDE 26 mmol/L (22-29); CHLORIDE 107 mmol/L (98-107); CREATININE 0.69 mg/dL (0.60-1.30); GLOMERULAR FILTR. RATE CALC > 60 mL/min (>60); GLUCOSE,RANDOM 105 mg/dL (70-110); POTASSIUM 3.4 mmol/L (3.5-5.1); SODIUM SERUM 144 mmol/L (136-145); UREA NITROGEN, BLOOD 12 mg/dL (7-18)
[2019-02-26 17:59] LABS: ALANINE AMINOTRANSFERASE 176 U/L (12-78); ALBUMIN 3.4 g/dL (3.4-5.0); ALKALINE PHOSPHATASE 104 U/L (46-116); ASPARTATE AMINOTRANSFERASE 228 U/L (15-37); BILIRUBIN,TOTAL 0.4 mg/dL (0.1-1.0); HCG,QUANTITATIVE < 1 mIU/mL (0-6); TOTAL PROTEIN, SERUM 7.1 g/dL (6.4-8.2)
[2019-02-26 18:05] LABS: AMPHET/METH SCREEN,URINE POSITIVE (NEGATIVE); BARBITURATE SCREEN, URINE NEGATIVE (NEGATIVE); BENZODIAZEPINES SCREEN,URINE NEGATIVE (NEGATIVE); CANNABINOID SCREEN,URINE NEGATIVE (NEGATIVE); COCAINE SCREEN,URINE NEGATIVE (NEGATIVE); METHADONE SCREEN, URINE NEGATIVE (NEGATIVE); OPIATE SCREEN,URINE POSITIVE (NEGATIVE)
[2019-02-26 18:06] LABS: PHENCYCLIDINE SCREEN,URINE NEGATIVE (NEGATIVE)
[2019-02-26 21:23] VITALS: BP 118/81
== END 2019-02-26 21:52 | disposition home or self-care (01) ==
LOC: EMS 17:20
DX: F10.229 Alcohol dependence with intoxication, unspecified (principal); F15.10 Other stimulant abuse, uncomplicated; K21.9 Gastro-esophageal reflux disease without esophagitis; F20.9 Schizophrenia, unspecified; F12.90 Cannabis use, unspecified, uncomplicated; F14.90 Cocaine use, unspecified, uncomplicated; F17.210 Nicotine dependence, cigarettes, uncomplicated; Y90.8 Blood alcohol level of 240 mg/100 ml or more; Z79.899 Other long term (current) drug therapy; Z59.0 Homelessness
CPT/HCPCS: 36415; 80053; 80307; 84702; 85025; 99283; 99406; G0480

== ENCOUNTER 2019-03-21 18:20 | Emergency (ER) | payer MEDICAID ==
[~2019-03-21] VITALS: Ht 154.9 cm; Wt 68.2 kg
[2019-03-21 20:26] LABS: BASOPHILS % (AUTO) 1.4 % (0.0-2.0); EOSINOPHILS % (AUTO) 1.2 % (1.0-6.0); HEMATOCRIT 41.6 % (36-46); HEMOGLOBIN 13.7 g/dL (12.0-16.0); LYMPHOCYTES # (AUTO) 1.9 K/uL (1.0-4.8); LYMPHOCYTES % (AUTO) 31.3 % (22.0-44.0); MEAN CORPUSCULAR HEMOGLOBIN 31.5 pg (26.0-34.0); MEAN CORPUSCULAR VOLUME 96 fL (80-100); MONOCYTES % (AUTO) 16.8 % (2.0-9.0); NEUTROPHILS % (AUTO) 49.3 % (40.0-70.0); PLATELET COUNT (AUTO) 315 K/uL (150-450); RED BLOOD CELL COUNT(AUTO) 4.35 MIL/uL (4.00-5.20); RED CELL DISTRIBUTION WIDTH 15.4 % (11.5-14.5)
[2019-03-21] MEDS ORDERED: QUEtiapine FUMARATE 100 MG TABLET PO ONE (20:30)
[2019-03-21] MEDS ORDERED: LORazepam 2 MG TABLET PO ONE (20:30)
[2019-03-21 20:32] LABS: ANION GAP 8 mmol/L (8-16); CALCIUM, TOTAL 8.9 mg/dL (8.8-10.5); CARBON DIOXIDE 29 mmol/L (22-29); CHLORIDE 102 mmol/L (98-107); CREATININE 0.86 mg/dL (0.60-1.30); GLOMERULAR FILTR. RATE CALC > 60 mL/min (>60); GLUCOSE,RANDOM 91 mg/dL (70-110); POTASSIUM 4.2 mmol/L (3.5-5.1); SODIUM SERUM 139 mmol/L (136-145); UREA NITROGEN, BLOOD 11 mg/dL (7-18)
[2019-03-21 20:43] LABS: ALANINE AMINOTRANSFERASE 184 U/L (12-78); ALBUMIN 3.5 g/dL (3.4-5.0); ALKALINE PHOSPHATASE 115 U/L (46-116); ASPARTATE AMINOTRANSFERASE 253 U/L (15-37); BILIRUBIN,TOTAL 0.5 mg/dL (0.1-1.0); TOTAL PROTEIN, SERUM 7.7 g/dL (6.4-8.2)
[2019-03-21 21:13] LABS: AMPHET/METH SCREEN,URINE POSITIVE (NEGATIVE); BARBITURATE SCREEN, URINE NEGATIVE (NEGATIVE); BENZODIAZEPINES SCREEN,URINE NEGATIVE (NEGATIVE); CANNABINOID SCREEN,URINE NEGATIVE (NEGATIVE); COCAINE SCREEN,URINE NEGATIVE (NEGATIVE); METHADONE SCREEN, URINE NEGATIVE (NEGATIVE); OPIATE SCREEN,URINE NEGATIVE (NEGATIVE)
[2019-03-21 21:14] LABS: PHENCYCLIDINE SCREEN,URINE NEGATIVE (NEGATIVE)
[2019-03-21 23:30] VITALS: BP 116/75
== END 2019-03-22 03:11 | disposition home or self-care (01) ==
LOC: EMS 18:21
DX: F41.9 Anxiety disorder, unspecified (principal); F32.9 Major depressive disorder, single episode, unspecified; R10.30 Lower abdominal pain, unspecified; F20.9 Schizophrenia, unspecified; K21.9 Gastro-esophageal reflux disease without esophagitis; F17.210 Nicotine dependence, cigarettes, uncomplicated; F12.90 Cannabis use, unspecified, uncomplicated; F19.90 Other psychoactive substance use, unspecified, uncomplicated; F14.90 Cocaine use, unspecified, uncomplicated; F13.90 Sedative, hypnotic, or anxiolytic use, unspecified, uncomplicated; Z59.0 Homelessness; Z79.899 Other long term (current) drug therapy
CPT/HCPCS: 36415; 80053; 80307; 84702; 85025; 99284; G0480

== ENCOUNTER 2019-04-14 14:27 | Emergency (ER) | payer MEDICAID ==
[~2019-04-14] VITALS: Ht 154.9 cm; Wt 58.2 kg
[2019-04-14 17:15] LABS: BASOPHILS % (AUTO) 0.7 % (0.0-2.0); EOSINOPHILS % (AUTO) 0.4 % (1.0-6.0); HEMATOCRIT 38.8 % (36-46); HEMOGLOBIN 12.8 g/dL (12.0-16.0); LYMPHOCYTES # (AUTO) 1.1 K/uL (1.0-4.8); LYMPHOCYTES % (AUTO) 13.2 % (22.0-44.0); MEAN CORPUSCULAR VOLUME 91 fL (80-100); MONOCYTES # (AUTO) 1.1 K/uL (0.1-1.0); MONOCYTES % (AUTO) 13.9 % (2.0-9.0); NEUTROPHILS # (AUTO) 5.8 K/uL (1.8-7.7); NEUTROPHILS % (AUTO) 71.8 % (40.0-70.0); PLATELET COUNT (AUTO) 373 K/uL (150-450); RED BLOOD CELL COUNT(AUTO) 4.26 MIL/uL (4.00-5.20)
[2019-04-14 17:34] LABS: ANION GAP 10 mmol/L (8-16); CALCIUM, TOTAL 9.2 mg/dL (8.8-10.5); CARBON DIOXIDE 29 mmol/L (22-29); CHLORIDE 99 mmol/L (98-107); CREATININE 0.78 mg/dL (0.60-1.30); GLOMERULAR FILTR. RATE CALC > 60 mL/min (>60); GLUCOSE,RANDOM 105 mg/dL (70-110); POTASSIUM 3.6 mmol/L (3.5-5.1); SODIUM SERUM 138 mmol/L (136-145); UREA NITROGEN, BLOOD 10 mg/dL (7-18)
[2019-04-14 17:40] LABS: ALANINE AMINOTRANSFERASE 156 U/L (12-78); ALBUMIN 2.6 g/dL (3.4-5.0); ALKALINE PHOSPHATASE 265 U/L (46-116); ASPARTATE AMINOTRANSFERASE 176 U/L (15-37); BILIRUBIN,TOTAL 0.5 mg/dL (0.1-1.0)
[2019-04-14 18:20] VITALS: BP 130/68
== END 2019-04-14 18:57 | disposition home or self-care (01) ==
LOC: EMS 14:30
DX: K92.2 Gastrointestinal hemorrhage, unspecified (principal); K59.00 Constipation, unspecified; F20.9 Schizophrenia, unspecified; F14.90 Cocaine use, unspecified, uncomplicated; F12.90 Cannabis use, unspecified, uncomplicated; F15.90 Other stimulant use, unspecified, uncomplicated; F13.90 Sedative, hypnotic, or anxiolytic use, unspecified, uncomplicated; Z59.0 Homelessness; Z79.899 Other long term (current) drug therapy

== ENCOUNTER 2019-08-21 21:05 | Emergency (ER) | payer MEDICAID ==
[~2019-08-21] VITALS: Ht 154.9 cm; Wt 59.1 kg
[2019-08-21] MEDS ORDERED: LIDOCAINE 1% 10 ML VIAL INJ ONE (21:30)
[2019-08-21 22:18] VITALS: BP 129/76
== END 2019-08-21 22:29 | disposition home or self-care (01) ==
LOC: EMS 21:07
DX: S60.450A Superficial foreign body of right index finger, initial encounter (principal); L30.9 Dermatitis, unspecified; K21.9 Gastro-esophageal reflux disease without esophagitis; F10.20 Alcohol dependence, uncomplicated; F20.9 Schizophrenia, unspecified; F17.210 Nicotine dependence, cigarettes, uncomplicated; F11.90 Opioid use, unspecified, uncomplicated; F12.90 Cannabis use, unspecified, uncomplicated; F15.90 Other stimulant use, unspecified, uncomplicated; Z79.899 Other long term (current) drug therapy; Z86.19 Personal history of other infectious and parasitic diseases; Z59.0 Homelessness; W45.8XXA Other foreign body or object entering through skin, initial encounter; Y93.89 Activity, other specified; Y92.89 Other specified places as the place of occurrence of the external cause; Y99.8 Other external cause status

== ENCOUNTER 2019-08-29 15:52 | Inpatient (IN) | payer MEDICAID ==
[~2019-08-29] VITALS: Ht 154.9 cm; Wt 61.7 kg
[2019-08-29 18:37] LABS: BASOPHILS % (AUTO) 1.5 % (0.0-2.0); HEMATOCRIT 38.8 % (36-46); HEMOGLOBIN 12.9 g/dL (12.0-16.0); LYMPHOCYTES # (AUTO) 1.6 K/uL (1.0-4.8); LYMPHOCYTES % (AUTO) 28.6 % (22.0-44.0); MEAN CORPUSCULAR HEMOGLOBIN 32.6 pg (26.0-34.0); MEAN CORPUSCULAR HGB CONC 33.1 G/dL (31.0-37.0); MEAN CORPUSCULAR VOLUME 98 fL (80-100); MONOCYTES # (AUTO) 0.9 K/uL (0.1-1.0); MONOCYTES % (AUTO) 16.5 % (2.0-9.0); NEUTROPHILS # (AUTO) 2.6 K/uL (1.8-7.7); NEUTROPHILS % (AUTO) 47.4 % (40.0-70.0); PLATELET COUNT (AUTO) 358 K/uL (150-450); RED BLOOD CELL COUNT(AUTO) 3.95 MIL/uL (4.00-5.20); RED CELL DISTRIBUTION WIDTH 13.2 % (11.5-14.5)
[2019-08-29 19:13] LABS: ALANINE AMINOTRANSFERASE 222 U/L (12-78); ALBUMIN 3.1 g/dL (3.4-5.0); ALKALINE PHOSPHATASE 96 U/L (46-116); ANION GAP 9 mmol/L (8-16); ASPARTATE AMINOTRANSFERASE 194 U/L (15-37); BILIRUBIN,TOTAL 0.3 mg/dL (0.1-1.0); CALCIUM, TOTAL 9.4 mg/dL (8.8-10.5); CARBON DIOXIDE 28 mmol/L (22-29); CHLORIDE 102 mmol/L (98-107); CREATININE 0.73 mg/dL (0.60-1.30); GLOMERULAR FILTR. RATE CALC > 60 mL/min (>60); GLUCOSE,RANDOM 89 mg/dL (70-110); POTASSIUM 3.2 mmol/L (3.5-5.1); SODIUM SERUM 139 mmol/L (136-145); TOTAL PROTEIN, SERUM 8.4 g/dL (6.4-8.2); UREA NITROGEN, BLOOD 7 mg/dL (7-18)
[2019-08-29 19:57] LABS: AMPHET/METH SCREEN,URINE POSITIVE (NEGATIVE); BARBITURATE SCREEN, URINE NEGATIVE (NEGATIVE); BENZODIAZEPINES SCREEN,URINE NEGATIVE (NEGATIVE); CANNABINOID SCREEN,URINE NEGATIVE (NEGATIVE); COCAINE SCREEN,URINE NEGATIVE (NEGATIVE); METHADONE SCREEN, URINE NEGATIVE (NEGATIVE); OPIATE SCREEN,URINE NEGATIVE (NEGATIVE); PHENCYCLIDINE SCREEN,URINE NEGATIVE (NEGATIVE)
[2019-08-29] MEDS ORDERED: POTASSIUM CHLORIDE 20 MEQ ER TABLET PO ONE (20:30)
[2019-08-29] MEDS ORDERED: DOCU-275 PO (20:31)
[2019-08-29] MEDS ORDERED: LORazepam 2 MG TABLET PO PRN ×2 (22:45)
[2019-08-29] MEDS ORDERED: ZOLPIDEM TARTRATE 10 MG TABLET PO PRN (22:45)
[2019-08-30] VITALS (7 sets, daily range): BP systolic 105–149; BP diastolic 63–80
[2019-08-30] MEDS: HALOPERIDOL 5 MG TABLET PO PRN (03:05)
[2019-08-30] MEDS ORDERED: INFLUENZA VIRUS VACCINE QVS 2019-20 (3YR+)/PF 60 MCG/0.5 ML SYRINGE IM ONE (04:30)
[2019-08-30] MEDS ORDERED: LORazepam 2 MG TABLET PO PRN (07:00)
[2019-08-30] MEDS: LORazepam 2 MG TABLET PO SCH ×4 (08:28→20:35)
[2019-08-30] MEDS: NICOTINE 7 MG/24 HOUR PATCH TD SCH (08:28)
[2019-08-30] MEDS: PARoxetine HCL 20 MG TABLET PO SCH (12:31)
[2019-08-30] MEDS ORDERED: PETROLATUM,WHITE 28 GM JELLY TP PRN (15:00)
[2019-08-30] MEDS ORDERED: NICOTINE 14 MG/24 HOUR PATCH TD PRN (15:00)
[2019-08-30] MEDS ORDERED: CloNIDine HCL 0.1 MG TABLET PO PRN (15:00)
[2019-08-30] MEDS ORDERED: GuaiFENesin/D-METHORPHAN [SUGAR-FREE] 200-20MG/10 ML SYRUP UDCUP PO PRN (15:00)
[2019-08-30] MEDS ORDERED: IBUPROFEN 400 MG TABLET PO PRN (15:00)
[2019-08-30] MEDS ORDERED: ACETAMINOPHEN 325 MG TABLET PO PRN (15:00)
[2019-08-30] MEDS ORDERED: ONDANSETRON HCL 4 MG TABLET PO PRN (15:00)
[2019-08-30] MEDS ORDERED: LOPERAMIDE HCL 2 MG CAPSULE PO PRN (15:00)
[2019-08-30] MEDS ORDERED: MAG HYDROX/AL HYDROX/SIMETH ES 30 ML SUSPENSION UDCUP PO PRN (15:00)
[2019-08-30] MEDS ORDERED: DOCUSATE SODIUM 100 MG CAPSULE PO PRN (15:00)
[2019-08-30] MEDS ORDERED: ALBUTEROL SULFATE HFA 90 MCG/PUFF 8 GM INHALER IH PRN (15:00)
[2019-08-30] MEDS ORDERED: MAGNESIUM HYDROXIDE SUSPENSION 30 ML UDCUP PO PRN (15:00)
[2019-08-30] MEDS: FAMOTIDINE 20 MG TABLET PO SCH (16:35)
[2019-08-30] MEDS: FERROUS SULFATE 325 MG EC TABLET PO SCH (17:19)
[2019-08-30] MEDS: QUEtiapine FUMARATE 300 MG ER TABLET PO SCH (20:34)
[2019-08-31 06:55] VITALS: BP 101/62
[2019-08-31 06:56] VITALS: BP 101/62
[2019-08-31] MEDS: FAMOTIDINE 20 MG TABLET PO SCH ×2 (07:09→16:10)
[2019-08-31] MEDS: FERROUS SULFATE 325 MG EC TABLET PO SCH ×2 (07:09→16:10)
[2019-08-31 08:37] VITALS: BP 123/59
[2019-08-31] MEDS: PARoxetine HCL 20 MG TABLET PO SCH (08:59)
[2019-08-31] MEDS: NICOTINE 7 MG/24 HOUR PATCH TD SCH (09:00)
[2019-08-31] MEDS: LORazepam 2 MG TABLET PO SCH ×4 (09:00→23:06)
[2019-08-31 16:08] VITALS: BP 112/73
[2019-08-31 17:48] VITALS: BP 107/69
[2019-08-31] MEDS: QUEtiapine FUMARATE 300 MG ER TABLET PO SCH (20:13)
[2019-09-01] VITALS (8 sets, daily range): BP systolic 92–120; BP diastolic 54–74
[2019-09-01] MEDS: FAMOTIDINE 20 MG TABLET PO SCH ×2 (06:59→16:18)
[2019-09-01] MEDS: FERROUS SULFATE 325 MG EC TABLET PO SCH ×2 (06:59→16:19)
[2019-09-01] MEDS ORDERED: LORazepam 1 MG TABLET PO PRN (07:00)
[2019-09-01] MEDS: LORazepam 1 MG TABLET PO SCH ×4 (09:00→21:18)
[2019-09-01] MEDS: PARoxetine HCL 20 MG TABLET PO SCH (09:00)
[2019-09-01] MEDS: NICOTINE 7 MG/24 HOUR PATCH TD SCH (09:58)
[2019-09-01] MEDS ORDERED: QUEtiapine FUMARATE 200 MG ER TABLET PO SCH (22:00)
[2019-09-01] MEDS ORDERED: QUEtiapine FUMARATE 50 MG ER TABLET PO SCH (22:00)
[2019-09-02 00:54] VITALS: BP 105/65
[2019-09-02 06:20] VITALS: BP 119/67
[2019-09-02] MEDS: FAMOTIDINE 20 MG TABLET PO SCH ×2 (06:59→16:43)
[2019-09-02] MEDS: FERROUS SULFATE 325 MG EC TABLET PO SCH ×2 (06:59→16:43)
[2019-09-02] MEDS ORDERED: LORazepam 1 MG TABLET PO PRN (07:00)
[2019-09-02 08:00] VITALS: BP 103/60
[2019-09-02 08:03] VITALS: BP 103/60
[2019-09-02] MEDS: PARoxetine HCL 20 MG TABLET PO SCH (09:17)
[2019-09-02] MEDS: NICOTINE 7 MG/24 HOUR PATCH TD SCH (09:18)
[2019-09-02 16:02] VITALS: BP 100/63
[2019-09-02 16:50] VITALS: BP 111/70
[2019-09-02] MEDS: LORazepam 1 MG TABLET PO PRN (17:19)
[2019-09-02] MEDS ORDERED: QUEtiapine FUMARATE 300 MG ER TABLET PO SCH (21:00)
[2019-09-03] MEDS: FERROUS SULFATE 325 MG EC TABLET PO SCH ×2 (06:49→16:40)
[2019-09-03] MEDS: FAMOTIDINE 20 MG TABLET PO SCH ×2 (06:49→16:14)
[2019-09-03 06:59] VITALS: BP 110/65
[2019-09-03 08:13] LABS: ALANINE AMINOTRANSFERASE 219 U/L (12-78); ALBUMIN 2.6 g/dL (3.4-5.0); ALKALINE PHOSPHATASE 79 U/L (46-116); ANION GAP 4 mmol/L (8-16); ASPARTATE AMINOTRANSFERASE 167 U/L (15-37); BILIRUBIN,TOTAL 0.3 mg/dL (0.1-1.0); CALCIUM, TOTAL 8.8 mg/dL (8.8-10.5); CARBON DIOXIDE 31 mmol/L (22-29); CHLORIDE 101 mmol/L (98-107); CREATININE 0.74 mg/dL (0.60-1.30); GLOMERULAR FILTR. RATE CALC > 60 mL/min (>60); GLUCOSE,RANDOM 85 mg/dL (70-110); SODIUM SERUM 136 mmol/L (136-145); TOTAL PROTEIN, SERUM 7.5 g/dL (6.4-8.2); UREA NITROGEN, BLOOD 19 mg/dL (7-18)
[2019-09-03] MEDS: PARoxetine HCL 20 MG TABLET PO SCH (08:48)
[2019-09-03] MEDS: NICOTINE 7 MG/24 HOUR PATCH TD SCH (08:49)
[2019-09-03 10:24] VITALS: BP 101/66
[2019-09-03 10:25] VITALS: BP 101/66
[2019-09-03 16:47] VITALS: BP 112/69
[2019-09-03] MEDS: HALOPERIDOL 5 MG TABLET PO PRN (18:27)
[2019-09-03 19:12] VITALS: BP 101/62
[2019-09-03] MEDS: QUEtiapine FUMARATE 300 MG ER TABLET PO SCH (20:09)
[2019-09-04] MEDS: FAMOTIDINE 20 MG TABLET PO SCH ×2 (06:34→16:29)
[2019-09-04] MEDS: FERROUS SULFATE 325 MG EC TABLET PO SCH ×2 (06:38→16:29)
[2019-09-04 06:52] VITALS: BP 100/62
[2019-09-04 08:15] VITALS: BP 100/57
[2019-09-04] MEDS: NICOTINE 7 MG/24 HOUR PATCH TD SCH (08:35)
[2019-09-04] MEDS: PARoxetine HCL 20 MG TABLET PO SCH (08:35)
[2019-09-04 13:18] VITALS: BP 108/68
[2019-09-04 16:17] VITALS: BP 107/57
[2019-09-04] MEDS: QUEtiapine FUMARATE 300 MG ER TABLET PO SCH (20:22)
[2019-09-05 06:10] VITALS: BP 100/60
[2019-09-05] MEDS: FERROUS SULFATE 325 MG EC TABLET PO SCH ×2 (06:56→16:05)
[2019-09-05] MEDS: FAMOTIDINE 20 MG TABLET PO SCH ×2 (06:56→16:05)
[2019-09-05 08:25] VITALS: BP 100/61
[2019-09-05] MEDS: PARoxetine HCL 20 MG TABLET PO SCH (08:43)
[2019-09-05] MEDS: NICOTINE 7 MG/24 HOUR PATCH TD SCH (08:43)
[2019-09-05] MEDS: LORazepam 1 MG TABLET PO PRN (16:08)
[2019-09-05 16:22] VITALS: BP 101/63
[2019-09-05] MEDS: QUEtiapine FUMARATE 300 MG ER TABLET PO SCH (20:54)
[2019-09-06 06:47] VITALS: BP 99/59
[2019-09-06] MEDS: FERROUS SULFATE 325 MG EC TABLET PO SCH ×2 (07:09→16:33)
[2019-09-06] MEDS: FAMOTIDINE 20 MG TABLET PO SCH ×2 (07:09→16:28)
[2019-09-06] MEDS: NICOTINE 7 MG/24 HOUR PATCH TD SCH (08:04)
[2019-09-06] MEDS: PARoxetine HCL 20 MG TABLET PO SCH (08:04)
[2019-09-06 08:26] VITALS: BP 102/49
[2019-09-06] MEDS: LORazepam 1 MG TABLET PO PRN (12:27)
[2019-09-06 16:20] VITALS: BP 107/62
[2019-09-06] MEDS: QUEtiapine FUMARATE 300 MG ER TABLET PO SCH (20:15)
[2019-09-07 02:10] VITALS: BP 105/63
[2019-09-07] MEDS: FAMOTIDINE 20 MG TABLET PO SCH ×2 (06:36→16:13)
[2019-09-07] MEDS: FERROUS SULFATE 325 MG EC TABLET PO SCH ×2 (06:36→17:05)
[2019-09-07] MEDS: PARoxetine HCL 20 MG TABLET PO SCH (08:41)
[2019-09-07 08:56] VITALS: BP 107/67
[2019-09-07] MEDS: NICOTINE 7 MG/24 HOUR PATCH TD SCH (09:00)
[2019-09-07] MEDS: LORazepam 1 MG TABLET PO PRN (16:13)
[2019-09-07 16:23] VITALS: BP 112/66
[2019-09-07] MEDS: QUEtiapine FUMARATE 300 MG ER TABLET PO SCH (20:11)
[2019-09-08] MEDS: FERROUS SULFATE 325 MG EC TABLET PO SCH ×2 (06:39→16:34)
[2019-09-08] MEDS: FAMOTIDINE 20 MG TABLET PO SCH ×2 (06:39→16:34)
[2019-09-08 07:15] VITALS: BP 115/75
[2019-09-08 08:40] VITALS: BP 101/56
[2019-09-08] MEDS: PARoxetine HCL 20 MG TABLET PO SCH (08:48)
[2019-09-08] MEDS: NICOTINE 7 MG/24 HOUR PATCH TD SCH (08:49)
[2019-09-08 16:06] VITALS: BP 109/61
[2019-09-08] MEDS: QUEtiapine FUMARATE 300 MG ER TABLET PO SCH (20:12)
[2019-09-09 06:30] VITALS: BP 99/62
[2019-09-09] MEDS: FERROUS SULFATE 325 MG EC TABLET PO SCH (06:42)
[2019-09-09] MEDS: FAMOTIDINE 20 MG TABLET PO SCH (06:42)
[2019-09-09 08:23] VITALS: BP 102/61
[2019-09-09 08:30] VITALS: BP 110/72
[2019-09-09] MEDS: NICOTINE 7 MG/24 HOUR PATCH TD SCH (08:33)
[2019-09-09] MEDS: PARoxetine HCL 20 MG TABLET PO SCH (08:33)
[2019-09-09] MEDS ORDERED: FAMO20 PO (11:34)
== END 2019-09-09 13:55 | disposition home or self-care (01) | DRG 750 ==
LOC: EMS 15:53 → B3A 08-30 02:11
PROVIDERS: ADMIT Psychiatry & Neurology Psychiatry; ATTEND Psychiatry & Neurology Psychiatry
DX: F25.1 Schizoaffective disorder, depressive type (principal); K74.60 Unspecified cirrhosis of liver; R45.851 Suicidal ideations; Z59.0 Homelessness; F41.9 Anxiety disorder, unspecified; J45.909 Unspecified asthma, uncomplicated; K21.9 Gastro-esophageal reflux disease without esophagitis; K59.00 Constipation, unspecified; F17.210 Nicotine dependence, cigarettes, uncomplicated; B18.2 Chronic viral hepatitis C; D64.9 Anemia, unspecified; E87.6 Hypokalemia; M54.5 Low back pain; F10.129 Alcohol abuse with intoxication, unspecified; F15.10 Other stimulant abuse, uncomplicated; Z91.19 Patient's noncompliance with other medical treatment and regimen; Z91.5 Personal history of self-harm; Z71.41 Alcohol abuse counseling and surveillance of alcoholic
CPT/HCPCS: 90686; G0480

== ENCOUNTER 2019-10-26 14:08 | Emergency (ER) | payer MEDICAID ==
[~2019-10-26] VITALS: Ht 165.1 cm; Wt 54.5 kg
[~2019-10-26 14:08] MED LIST changes: -DSS100 PO; -TRAZ-220 PO
[2019-10-26 14:14] VITALS: BP 139/91
== END 2019-10-26 15:52 | disposition left against medical advice (07) ==
LOC: EMS 14:10
DX: F10.129 Alcohol abuse with intoxication, unspecified (principal); K21.9 Gastro-esophageal reflux disease without esophagitis; F20.9 Schizophrenia, unspecified; F17.210 Nicotine dependence, cigarettes, uncomplicated; F14.90 Cocaine use, unspecified, uncomplicated; F12.90 Cannabis use, unspecified, uncomplicated; F19.90 Other psychoactive substance use, unspecified, uncomplicated; F13.10 Sedative, hypnotic or anxiolytic abuse, uncomplicated; Z59.0 Homelessness

== ENCOUNTER 2019-11-04 20:53 | Inpatient (IN) | payer MEDICAID ==
[~2019-11-04] VITALS: Ht 154.9 cm; Wt 61.4 kg
[2019-11-04 22:38] LABS: AMPHET/METH SCREEN,URINE POSITIVE (NEGATIVE); BARBITURATE SCREEN, URINE NEGATIVE (NEGATIVE); BENZODIAZEPINES SCREEN,URINE NEGATIVE (NEGATIVE); CANNABINOID SCREEN,URINE NEGATIVE (NEGATIVE); COCAINE SCREEN,URINE NEGATIVE (NEGATIVE); METHADONE SCREEN, URINE NEGATIVE (NEGATIVE); OPIATE SCREEN,URINE NEGATIVE (NEGATIVE)
[2019-11-04 22:39] LABS: PHENCYCLIDINE SCREEN,URINE NEGATIVE (NEGATIVE)
[2019-11-04 22:43] LABS: EOSINOPHILS % (AUTO) 2.1 % (1.0-6.0); HEMATOCRIT 38.4 % (36-46); LYMPHOCYTES # (AUTO) 1.6 K/uL (1.0-4.8); LYMPHOCYTES % (AUTO) 32.6 % (22.0-44.0); MEAN CORPUSCULAR HEMOGLOBIN 33.4 pg (26.0-34.0); MEAN CORPUSCULAR VOLUME 98 fL (80-100); MONOCYTES # (AUTO) 0.6 K/uL (0.1-1.0); MONOCYTES % (AUTO) 11.4 % (2.0-9.0); NEUTROPHILS # (AUTO) 2.6 K/uL (1.8-7.7); NEUTROPHILS % (AUTO) 52.9 % (40.0-70.0); PLATELET COUNT (AUTO) 336 K/uL (150-450); RED CELL DISTRIBUTION WIDTH 15.2 % (11.5-14.5)
[2019-11-04 22:48] LABS: ANION GAP 5 mmol/L (8-16); CALCIUM, TOTAL 8.9 mg/dL (8.8-10.5); CARBON DIOXIDE 32 mmol/L (22-29); CHLORIDE 101 mmol/L (98-107); CREATININE 0.76 mg/dL (0.60-1.30); GLOMERULAR FILTR. RATE CALC > 60 mL/min (>60); GLUCOSE,RANDOM 76 mg/dL (70-110); POTASSIUM 3.7 mmol/L (3.5-5.1); SODIUM SERUM 138 mmol/L (136-145); UREA NITROGEN, BLOOD 4 mg/dL (7-18)
[2019-11-04 22:59] LABS: ALANINE AMINOTRANSFERASE 242 U/L (12-78); ALBUMIN 3.3 g/dL (3.4-5.0); ALKALINE PHOSPHATASE 110 U/L (46-116); ASPARTATE AMINOTRANSFERASE 349 U/L (15-37); BILIRUBIN,TOTAL 0.5 mg/dL (0.1-1.0); HCG,QUANTITATIVE 2 mIU/mL (0-6); TOTAL PROTEIN, SERUM 8.6 g/dL (6.4-8.2)
[2019-11-04] MEDS ORDERED: QUEtiapine FUMARATE 100 MG TABLET PO PRN (23:45)
[2019-11-04] MEDS ORDERED: PERMETHRIN 5% 60 GM CREAM TP ONE (23:45)
[2019-11-05] MEDS: LORazepam 2 MG TABLET PO PRN ×2 (02:14→20:06)
[2019-11-05 02:47] VITALS: BP 114/79
[2019-11-05 07:55] LABS: CHOLESTEROL 174 mg/dL (131-200); HDL CHOLESTEROL 87 mg/dL (40-60); LDL CHOL (CALC.) 75 mg/dL (0-130); TRIGLYCERIDES 59 mg/dL (15-150)
[2019-11-05 08:48] VITALS: BP 103/52
[2019-11-05] MEDS: PARoxetine HCL 20 MG TABLET PO SCH (10:17)
[2019-11-05] MEDS ORDERED: LOPERAMIDE HCL 2 MG CAPSULE PO PRN (10:30)
[2019-11-05] MEDS ORDERED: PETROLATUM,WHITE 28 GM JELLY TP PRN (10:30)
[2019-11-05] MEDS ORDERED: DOCUSATE SODIUM 100 MG CAPSULE PO PRN (10:30)
[2019-11-05] MEDS ORDERED: MAG HYDROX/AL HYDROX/SIMETH ES 30 ML SUSPENSION UDCUP PO PRN (10:30)
[2019-11-05] MEDS ORDERED: ACETAMINOPHEN 325 MG TABLET PO PRN (10:30)
[2019-11-05] MEDS ORDERED: IBUPROFEN 400 MG TABLET PO PRN (10:30)
[2019-11-05] MEDS ORDERED: GuaiFENesin/D-METHORPHAN [SUGAR-FREE] 200-20MG/10 ML SYRUP UDCUP PO PRN (10:30)
[2019-11-05] MEDS ORDERED: MAGNESIUM HYDROXIDE SUSPENSION 30 ML UDCUP PO PRN (10:30)
[2019-11-05] MEDS ORDERED: ALBUTEROL SULFATE HFA 90 MCG/PUFF 8 GM INHALER IH PRN (10:30)
[2019-11-05] MEDS ORDERED: ONDANSETRON HCL 4 MG TABLET PO PRN (10:30)
[2019-11-05] MEDS ORDERED: CloNIDine HCL 0.1 MG TABLET PO PRN (10:30)
[2019-11-05] MEDS ORDERED: NICOTINE 14 MG/24 HOUR PATCH TD PRN (10:30)
[2019-11-05 16:00] VITALS: BP 124/74
[2019-11-05] MEDS ORDERED: QUEtiapine FUMARATE 300 MG TABLET PO SCH (21:00)
[2019-11-06 08:53] VITALS: BP 142/72
[2019-11-06] MEDS: PARoxetine HCL 20 MG TABLET PO SCH (11:48)
[2019-11-06] MEDS: MUPIROCIN CALCIUM 2% 22 GM OINTMENT NASAL SCH (16:26)
[2019-11-06 17:55] VITALS: BP 112/69
[2019-11-07 08:00] VITALS: BP 122/76
[2019-11-07] MEDS: PARoxetine HCL 20 MG TABLET PO SCH (09:29)
[2019-11-07] MEDS: MUPIROCIN CALCIUM 2% 22 GM OINTMENT NASAL SCH ×2 (09:29→16:31)
[2019-11-07 16:00] VITALS: BP 103/74
[2019-11-07] MEDS ORDERED: QUET300T2 PO (17:24)
[2019-11-07 18:11] VITALS: BP 115/63
[2019-11-07] MEDS: LORazepam 2 MG TABLET PO PRN (18:12)
[2019-11-07] MEDS: QUEtiapine FUMARATE 300 MG TABLET PO SCH (20:46)
[2019-11-08 05:52] VITALS: BP 109/68
[2019-11-08 08:10] VITALS: BP 104/68
[2019-11-08] MEDS: PARoxetine HCL 20 MG TABLET PO SCH (08:43)
[2019-11-08] MEDS: MUPIROCIN CALCIUM 2% 22 GM OINTMENT NASAL SCH ×2 (08:43→16:24)
[2019-11-08 18:25] VITALS: BP 99/52
[2019-11-08] MEDS: QUEtiapine FUMARATE 300 MG TABLET PO SCH (20:12)
[2019-11-09] MEDS: PARoxetine HCL 20 MG TABLET PO SCH (08:34)
[2019-11-09] MEDS: MUPIROCIN CALCIUM 2% 22 GM OINTMENT NASAL SCH ×2 (08:34→16:02)
[2019-11-09 09:14] VITALS: BP 100/58
[2019-11-09] MEDS: LORazepam 2 MG TABLET PO PRN (17:09)
[2019-11-09 17:10] VITALS: BP 99/57
[2019-11-09] MEDS: QUEtiapine FUMARATE 300 MG TABLET PO SCH (20:11)
[2019-11-10 09:01] VITALS: BP 114/59
[2019-11-10] MEDS: MUPIROCIN CALCIUM 2% 22 GM OINTMENT NASAL SCH ×2 (09:44→16:44)
[2019-11-10] MEDS: PARoxetine HCL 20 MG TABLET PO SCH (09:44)
[2019-11-10 20:00] VITALS: BP 121/62
[2019-11-10] MEDS: LORazepam 2 MG TABLET PO PRN (20:05)
[2019-11-10] MEDS: QUEtiapine FUMARATE 300 MG TABLET PO SCH (20:05)
[2019-11-11 07:11] LABS: BASOPHILS % (AUTO) 0.4 % (0.0-2.0); EOSINOPHILS % (AUTO) 4.8 % (1.0-6.0); HEMATOCRIT 36.7 % (36-46); HEMOGLOBIN 12.3 g/dL (12.0-16.0); LYMPHOCYTES # (AUTO) 1.1 K/uL (1.0-4.8); LYMPHOCYTES % (AUTO) 23.2 % (22.0-44.0); MEAN CORPUSCULAR HEMOGLOBIN 33.5 pg (26.0-34.0); MEAN CORPUSCULAR HGB CONC 33.5 G/dL (31.0-37.0); MEAN CORPUSCULAR VOLUME 100 fL (80-100); MONOCYTES # (AUTO) 0.9 K/uL (0.1-1.0); NEUTROPHILS # (AUTO) 2.4 K/uL (1.8-7.7); NEUTROPHILS % (AUTO) 51.6 % (40.0-70.0); PLATELET COUNT (AUTO) 317 K/uL (150-450); RED BLOOD CELL COUNT(AUTO) 3.66 MIL/uL (4.00-5.20); RED CELL DISTRIBUTION WIDTH 14.7 % (11.5-14.5)
[2019-11-11 08:30] VITALS: BP 94/61
[2019-11-11] MEDS: PARoxetine HCL 20 MG TABLET PO SCH (09:59)
[2019-11-11] MEDS: MUPIROCIN CALCIUM 2% 22 GM OINTMENT NASAL SCH (09:59)
[2019-11-11 17:45] VITALS: BP 90/57
[2019-11-11] MEDS: QUEtiapine FUMARATE 300 MG TABLET PO SCH (20:46)
[2019-11-12 07:16] LABS: ALANINE AMINOTRANSFERASE 277 U/L (12-78); ALBUMIN 2.7 g/dL (3.4-5.0); ALKALINE PHOSPHATASE 90 U/L (46-116); ANION GAP 2 mmol/L (8-16); ASPARTATE AMINOTRANSFERASE 169 U/L (15-37); BILIRUBIN,TOTAL 0.4 mg/dL (0.1-1.0); CALCIUM, TOTAL 9.3 mg/dL (8.8-10.5); CARBON DIOXIDE 33 mmol/L (22-29); CHLORIDE 103 mmol/L (98-107); CREATININE 0.79 mg/dL (0.60-1.30); GLOMERULAR FILTR. RATE CALC > 60 mL/min (>60); GLUCOSE,RANDOM 88 mg/dL (70-110); POTASSIUM 4.7 mmol/L (3.5-5.1); SODIUM SERUM 138 mmol/L (136-145); TOTAL PROTEIN, SERUM 7.6 g/dL (6.4-8.2); UREA NITROGEN, BLOOD 19 mg/dL (7-18)
[2019-11-12 08:30] VITALS: BP 96/64
[2019-11-12] MEDS: LORazepam 2 MG TABLET PO PRN (09:07)
[2019-11-12] MEDS: PARoxetine HCL 20 MG TABLET PO SCH (09:07)
[2019-11-12 17:49] VITALS: BP_SYST 93; BP_SYST 94; BP_DIAS 50; BP_DIAS 56
[2019-11-12] MEDS: QUEtiapine FUMARATE 300 MG TABLET PO SCH (20:11)
[2019-11-13 08:35] VITALS: BP 95/61
[2019-11-13] MEDS: PARoxetine HCL 20 MG TABLET PO SCH (10:10)
[2019-11-13] MEDS: LORazepam 2 MG TABLET PO PRN (16:48)
[2019-11-13 16:49] VITALS: BP 105/78
[2019-11-13] MEDS: QUEtiapine FUMARATE 300 MG TABLET PO SCH (20:15)
[2019-11-14 08:29] VITALS: BP 99/69
[2019-11-14] MEDS: PARoxetine HCL 20 MG TABLET PO SCH (10:56)
[2019-11-14] MEDS: LORazepam 2 MG TABLET PO PRN ×2 (10:56→18:09)
[2019-11-14] MEDS: QUEtiapine FUMARATE 300 MG TABLET PO SCH (20:07)
[2019-11-14 21:40] VITALS: BP 114/59
[2019-11-14] MEDS: ZOLPIDEM TARTRATE 10 MG TABLET PO PRN (22:18)
[2019-11-15 09:30] VITALS: BP 108/60
[2019-11-15] MEDS: PARoxetine HCL 20 MG TABLET PO SCH (09:37)
[2019-11-15 17:31] VITALS: BP 99/57
[2019-11-15 19:56] VITALS: BP 102/62
[2019-11-15] MEDS: QUEtiapine FUMARATE 300 MG TABLET PO SCH (19:58)
[2019-11-16 09:15] VITALS: BP 92/56
[2019-11-16] MEDS: PARoxetine HCL 20 MG TABLET PO SCH (09:46)
[2019-11-16] MEDS: LORazepam 2 MG TABLET PO PRN (15:34)
[2019-11-16 16:35] VITALS: BP 105/64
[2019-11-16] MEDS: QUEtiapine FUMARATE 300 MG TABLET PO SCH (20:01)
[2019-11-16] MEDS: ZOLPIDEM TARTRATE 10 MG TABLET PO PRN (22:13)
[2019-11-17 09:36] VITALS: BP 109/75
[2019-11-17] MEDS: PARoxetine HCL 20 MG TABLET PO SCH (10:13)
[2019-11-17] MEDS ORDERED: PARO-37 PO (14:27)
[2019-11-17] MEDS ORDERED: QUET300T18 PO (14:27)
[2019-11-17 16:37] VITALS: BP 100/60
== END 2019-11-17 17:20 | disposition home or self-care (01) | DRG 885 ==
LOC: EMS 20:55 → 3EI 23:30
DX: F25.1 Schizoaffective disorder, depressive type (principal); B19.20 Unspecified viral hepatitis C without hepatic coma; R45.851 Suicidal ideations; F10.10 Alcohol abuse, uncomplicated; D64.9 Anemia, unspecified; K21.9 Gastro-esophageal reflux disease without esophagitis; J45.909 Unspecified asthma, uncomplicated; F12.90 Cannabis use, unspecified, uncomplicated; G89.29 Other chronic pain; M54.9 Dorsalgia, unspecified; Y90.6 Blood alcohol level of 120-199 mg/100 ml; Z59.0 Homelessness; Z79.899 Other long term (current) drug therapy; Z87.891 Personal history of nicotine dependence
CPT/HCPCS: 80074; 87081; G0480

== ENCOUNTER 2019-12-19 20:09 | Inpatient (IN) | payer MEDICAID ==
[~2019-12-19] VITALS: Ht 154.9 cm; Wt 56.8 kg
[~2019-12-19 20:09] MED LIST changes: -FAMO20 PO; -FERR-89 PO; +PARO-37 PO; -QUET100T PO; +QUET300T18 PO; +QUET300T2 PO
[2019-12-19 20:45] LABS: BASOPHILS % (AUTO) 0.7 % (0.0-2.0); EOSINOPHILS % (AUTO) 4.2 % (1.0-6.0); HEMATOCRIT 39.9 % (36-46); HEMOGLOBIN 13.7 g/dL (12.0-16.0); MEAN CORPUSCULAR HEMOGLOBIN 33.4 pg (26.0-34.0); MEAN CORPUSCULAR HGB CONC 34.3 G/dL (31.0-37.0); MEAN CORPUSCULAR VOLUME 97 fL (80-100); MONOCYTES # (AUTO) 0.6 K/uL (0.1-1.0); MONOCYTES % (AUTO) 12.5 % (2.0-9.0); NEUTROPHILS # (AUTO) 1.8 K/uL (1.8-7.7); NEUTROPHILS % (AUTO) 39.6 % (40.0-70.0); PLATELET COUNT (AUTO) 354 K/uL (150-450); RED CELL DISTRIBUTION WIDTH 13.8 % (11.5-14.5)
[2019-12-19 21:17] LABS: ALANINE AMINOTRANSFERASE 113 U/L (12-78); ALBUMIN 3.3 g/dL (3.4-5.0); ALKALINE PHOSPHATASE 102 U/L (46-116); ANION GAP 7 mmol/L (8-16); ASPARTATE AMINOTRANSFERASE 143 U/L (15-37); BILIRUBIN,TOTAL 0.4 mg/dL (0.1-1.0); CALCIUM, TOTAL 8.8 mg/dL (8.8-10.5); CARBON DIOXIDE 32 mmol/L (22-29); CHLORIDE 103 mmol/L (98-107); CREATININE 0.64 mg/dL (0.60-1.30); GLOMERULAR FILTR. RATE CALC > 60 mL/min (>60); GLUCOSE,RANDOM 94 mg/dL (70-110); HCG,QUANTITATIVE 1 mIU/mL (0-6); POTASSIUM 3.7 mmol/L (3.5-5.1); SODIUM SERUM 142 mmol/L (136-145); TOTAL PROTEIN, SERUM 8.5 g/dL (6.4-8.2)
[2019-12-19 21:24] LABS: UREA NITROGEN, BLOOD 9 mg/dL (7-18)
[2019-12-19 22:12] LABS: AMPHET/METH SCREEN,URINE POSITIVE (NEGATIVE); BARBITURATE SCREEN, URINE NEGATIVE (NEGATIVE); BENZODIAZEPINES SCREEN,URINE NEGATIVE (NEGATIVE); CANNABINOID SCREEN,URINE NEGATIVE (NEGATIVE); COCAINE SCREEN,URINE NEGATIVE (NEGATIVE); METHADONE SCREEN, URINE NEGATIVE (NEGATIVE); OPIATE SCREEN,URINE NEGATIVE (NEGATIVE)
[2019-12-19 22:18] LABS: PHENCYCLIDINE SCREEN,URINE POSITIVE (NEGATIVE)
[2019-12-20] MEDS ORDERED: ZOLPIDEM TARTRATE 10 MG TABLET PO PRN (00:45)
[2019-12-20] MEDS ORDERED: HALOPERIDOL 5 MG TABLET PO PRN (00:45)
[2019-12-20] MEDS: LORazepam 2 MG TABLET PO PRN ×2 (02:01→14:54)
[2019-12-20 02:17] VITALS: BP 125/72
[2019-12-20] MEDS ORDERED: CloNIDine HCL 0.1 MG TABLET PO PRN (07:45)
[2019-12-20] MEDS ORDERED: MAG HYDROX/AL HYDROX/SIMETH ES 30 ML SUSPENSION UDCUP PO PRN (07:45)
[2019-12-20] MEDS ORDERED: IBUPROFEN 600 MG TABLET PO PRN (07:45)
[2019-12-20] MEDS ORDERED: BACITRACIN 28.4 GM OINTMENT TP PRN (07:45)
[2019-12-20] MEDS ORDERED: ONDANSETRON HCL 4 MG TABLET PO PRN (07:45)
[2019-12-20] MEDS ORDERED: OMEPRAZOLE 20 MG CAPSULE PO PRN (07:45)
[2019-12-20] MEDS ORDERED: DOCUSATE SODIUM 100 MG CAPSULE PO PRN (07:45)
[2019-12-20] MEDS ORDERED: LOPERAMIDE HCL 2 MG CAPSULE PO PRN (07:45)
[2019-12-20] MEDS ORDERED: BENZOCAINE/MENTHOL LOZENGE MM PRN (07:45)
[2019-12-20] MEDS ORDERED: ALBUTEROL SULFATE HFA 90 MCG/PUFF 8 GM INHALER IH PRN (07:45)
[2019-12-20] MEDS ORDERED: MAGNESIUM HYDROXIDE SUSPENSION 30 ML UDCUP PO PRN (07:45)
[2019-12-20] MEDS ORDERED: PETROLATUM,WHITE 28 GM JELLY TP PRN (07:45)
[2019-12-20] MEDS ORDERED: ACETAMINOPHEN 325 MG TABLET PO PRN (07:45)
[2019-12-20] MEDS: FOLIC ACID 1 MG TABLET PO SCH (14:55)
[2019-12-20] MEDS: MULTIVITAMINS, THERAPEUTIC TABLET PO SCH (14:55)
[2019-12-20 16:26] VITALS: BP 125/77
[2019-12-20] MEDS: THIAMINE HCL 100 MG TABLET PO SCH (16:50)
[2019-12-20] MEDS: QUEtiapine FUMARATE 300 MG TABLET PO SCH (20:26)
[2019-12-21] MEDS: MULTIVITAMINS, THERAPEUTIC TABLET PO SCH (08:45)
[2019-12-21] MEDS: PARoxetine HCL 20 MG TABLET PO SCH (08:45)
[2019-12-21] MEDS: THIAMINE HCL 100 MG TABLET PO SCH ×2 (08:45→16:43)
[2019-12-21] MEDS: FOLIC ACID 1 MG TABLET PO SCH (08:45)
[2019-12-21 09:23] VITALS: BP 117/71
[2019-12-21] MEDS: MUPIROCIN CALCIUM 2% 22 GM OINTMENT NASAL SCH (16:28)
[2019-12-21 17:00] VITALS: BP 115/71
[2019-12-21] MEDS: QUEtiapine FUMARATE 300 MG TABLET PO SCH ×2 (19:47→20:37)
[2019-12-22] MEDS: FOLIC ACID 1 MG TABLET PO SCH (09:03)
[2019-12-22] MEDS: MULTIVITAMINS, THERAPEUTIC TABLET PO SCH (09:03)
[2019-12-22] MEDS: MUPIROCIN CALCIUM 2% 22 GM OINTMENT NASAL SCH ×2 (09:03→16:30)
[2019-12-22] MEDS: THIAMINE HCL 100 MG TABLET PO SCH ×2 (09:03→16:28)
[2019-12-22] MEDS: PARoxetine HCL 20 MG TABLET PO SCH (09:03)
[2019-12-22 14:06] VITALS: BP 116/69
[2019-12-22 16:27] VITALS: BP_SYST 106; BP_SYST 117; BP_DIAS 68; BP_DIAS 80
[2019-12-22] MEDS: LORazepam 2 MG TABLET PO PRN (16:28)
[2019-12-22] MEDS: QUEtiapine FUMARATE 300 MG TABLET PO SCH (20:38)
[2019-12-23 08:00] VITALS: BP 100/58
[2019-12-23] MEDS: MUPIROCIN CALCIUM 2% 22 GM OINTMENT NASAL SCH ×2 (08:03→16:05)
[2019-12-23] MEDS: PARoxetine HCL 20 MG TABLET PO SCH (08:03)
[2019-12-23] MEDS: FOLIC ACID 1 MG TABLET PO SCH (08:04)
[2019-12-23] MEDS: LORazepam 2 MG TABLET PO PRN (08:04)
[2019-12-23] MEDS: MULTIVITAMINS, THERAPEUTIC TABLET PO SCH (08:04)
[2019-12-23] MEDS: THIAMINE HCL 100 MG TABLET PO SCH ×2 (08:04→16:05)
[2019-12-23] MEDS ORDERED: FOLI0.4T91 PO ×2 (16:29→16:30)
[2019-12-23] MEDS ORDERED: MULT1TAB28 PO (16:34)
[2019-12-23] MEDS ORDERED: MUPI1OIN5 TP (16:37)
[2019-12-23] MEDS ORDERED: MUPI22OI2 TP (16:40)
[2019-12-23] MEDS ORDERED: THIA100T92 PO (16:41)
[2019-12-23 17:19] VITALS: BP 125/59
== END 2019-12-23 17:50 | disposition home or self-care (01) | DRG 885 ==
LOC: EMS 20:10 → 3EC 12-20 00:30
PROVIDERS: ADMIT Psychiatry & Neurology Psychiatry; ATTEND Psychiatry & Neurology Psychiatry
DX: F20.0 Paranoid schizophrenia (principal); B19.20 Unspecified viral hepatitis C without hepatic coma; F10.231 Alcohol dependence with withdrawal delirium; R45.851 Suicidal ideations; Z87.891 Personal history of nicotine dependence; R74.0 Nonspecific elevation of levels of transaminase and lactic acid dehydrogenase [LDH]; K21.9 Gastro-esophageal reflux disease without esophagitis; Z59.0 Homelessness
CPT/HCPCS: 87081; 93005; G0480

== ENCOUNTER 2020-05-20 15:41 | Emergency (ER) | payer MEDICAID ==
[~2020-05-20] VITALS: Ht 154.9 cm; Wt 54.5 kg
[~2020-05-20 15:41] MED LIST changes: +FOLI0.4T91 PO; +MULT1TAB28 PO; +MUPI1OIN5 TP; +MUPI22OI2 TP; -PARO-37 PO; -QUET300T18 PO; +THIA100T92 PO
[2020-05-20 15:44] VITALS: BP 125/71
[2020-05-20] MEDS ORDERED: AMOX TR/POT CLAV 875 MG/125 MG TABLET PO ONE (16:15)
[2020-05-20] MEDS ORDERED: KETOROLAC TROMETHAMINE 10 MG TABLET PO ONE (16:15)
== END 2020-05-20 16:47 | disposition home or self-care (01) ==
LOC: EMS 15:41
DX: K04.7 Periapical abscess without sinus (principal); R60.0 Localized edema; K21.9 Gastro-esophageal reflux disease without esophagitis; F20.9 Schizophrenia, unspecified; F14.90 Cocaine use, unspecified, uncomplicated; F12.90 Cannabis use, unspecified, uncomplicated; F17.210 Nicotine dependence, cigarettes, uncomplicated; Z59.0 Homelessness

== ENCOUNTER 2020-11-29 10:10 | Emergency (ER) | payer MEDICAID ==
[~2020-11-29] VITALS: Ht 157.5 cm; Wt 68.2 kg
[2020-11-29 10:14] VITALS: BP 102/59
== END 2020-11-29 11:10 | disposition home or self-care (01) ==
LOC: EMS 10:10
DX: T63.301A Toxic effect of unspecified spider venom, accidental (unintentional), initial encounter (principal); L03.116 Cellulitis of left lower limb; F25.1 Schizoaffective disorder, depressive type; K21.9 Gastro-esophageal reflux disease without esophagitis; F17.210 Nicotine dependence, cigarettes, uncomplicated; F12.90 Cannabis use, unspecified, uncomplicated; F15.90 Other stimulant use, unspecified, uncomplicated; F14.90 Cocaine use, unspecified, uncomplicated; Z59.0 Homelessness; Y92.89 Other specified places as the place of occurrence of the external cause
CPT/HCPCS: 99283; Z7502

== ENCOUNTER 2021-10-20 19:57 | Emergency (ER) | payer MEDICAID ==
[~2021-10-20] VITALS: Ht 154.9 cm; Wt 68.2 kg
[2021-10-20 20:45] VITALS: BP 128/77
[2021-10-20] MEDS ORDERED: ACETAMINOPHEN 500 MG TABLET PO ONE (20:45)
[2021-10-20] MEDS ORDERED: DiphenhydrAMINE HCL 50 MG CAPSULE PO ONE (20:45)
[2021-10-20] MEDS ORDERED: PredniSONE 20 MG TABLET PO ONE (20:45)
== END 2021-10-20 21:30 | disposition home or self-care (01) ==
LOC: EMS 19:59
DX: T63.441A Toxic effect of venom of bees, accidental (unintentional), initial encounter (principal); K21.9 Gastro-esophageal reflux disease without esophagitis; F20.9 Schizophrenia, unspecified; F17.210 Nicotine dependence, cigarettes, uncomplicated; F12.90 Cannabis use, unspecified, uncomplicated; F15.90 Other stimulant use, unspecified, uncomplicated; F14.90 Cocaine use, unspecified, uncomplicated; Z59.00 Homelessness unspecified; Y92.89 Other specified places as the place of occurrence of the external cause
CPT/HCPCS: 99284; J7512